=== PATIENT | female | born 1955 | race Hispanic/Latino ===

== ENCOUNTER 2020-03-19 16:45 | Inpatient (IN) | payer OTHER ==
[2020-03-19] MEDS ORDERED: Acetaminophen 500 MG TAB ONE (17:38)
[2020-03-19 17:41] LABS: #Lymphocytes 1.4 thou/uL (1.20-3.40); #Monocytes 0.6 thou/uL (0.11-0.59); %Basophils 0.2 % (0.0-1.0); %Eosinophils 0.3 % (0.0-10.0); %Lymphocytes 10.5 % (21.0-51.0); %Monocytes 4.3 % (0.0-10.0); %Neutrophils 84.8 % (42.0-75.0); Hemoglobin 9.7 g/dL (12.0-16.0); Mean Corpuscular HGB CONC 33.1 g/dL (32.0-36.0); Mean Corpuscular Hemoglobin 31.5 pg (27.0-31.0); Mean Corpuscular Volume 95.1 fL (78.0-98.0); Mean Platelet Volume 8.8 fL (7.4-10.4); Platelet Count 108 thou/uL (130-400); Platelet Morphology Comment Appears Decreased; RBC Distribution Width 13.6 % (11.5-14.5); RBC Morphology Normal; Red Blood Cell (RBC) Count 3.07 mill/uL (4.20-5.40)
[2020-03-19 17:50] LABS: INR-International Normal Ratio 1.2; PTT 33.7 SEC (22.9-36.1); Prothrombin Time 14.9 sec (12.0-14.7)
[2020-03-19 17:52] LABS: ALT (SGPT) 11 U/L (8-55); AST (SGOT) 10 U/L (5-34); Albumin 3.8 g/dL (3.4-4.8); Alkaline Phosphatase 128 U/L (40-110); Anion Gap 19 mmol/L (10-20); BUN (Urea Nitrogen) 61 mg/dL (9.8-20.1); Bilirubin, Total 0.5 mg/dL (0.2-1.2); Calc. Creatinine Clearance 0 mL/min (70-130); Calcium 9.4 mg/dL (7.8-10.44); Carbon Dioxide 23 mmol/L (23-31); Chloride 96 mmol/L (98-107); Estimated GFR-MDRD 7; Globulin 3.9 g/dL (2.4-3.5); Glucose 135 mg/dL (80-115); Potassium 5.4 mmol/L (3.5-5.1); Protein, Total 7.7 g/dL (6.0-8.3); Sodium 133 mmol/L (136-145)
[2020-03-19 18:01] LABS: Bacteria/HPF None Seen HPF (None Seen); Bilirubin Negative (Negative); Blood, Urine Trace (Negative); Clarity Clear (Clear); Glucose, Urine (Dipstick) 300 mg/dL (Negative); Leukocyte Negative Leu/uL (Negative); Nitrite Negative (Negative); Protein, Urine (Dipstick) 600 mg/dL (Neg-Trace); RBC/HPF 0-3 HPF (0-3); Squamous Epithelial None Seen HPF (0-3); Urobilinogen Normal mg/dL (Less than 2); WBC/HPF 0-3 HPF (0-3)
--- NOTE | 2020-03-19 18:19 | RAD ---
CHEST ONE VIEW: 03/19/20 HISTORY: AV fistula bleeding. Fever. COMPARISON: None. FINDINGS: Heart size is markedly enlarged. Mild pulmonary venous congestion. No pneumothorax. No acute osseous abnormality. Fistula stents are noted over the left upper extremity. IMPRESSION: Marked cardiomegaly and mild pulmonary edema. POS: HOME
[2020-03-19] MEDS ORDERED: Cefepime 2 GM VIAL ONE (19:43)
[2020-03-19] MEDS ORDERED: Sodium Chloride 0.9% 100 ML ONE (19:43)
[2020-03-19] MEDS ORDERED: Lidocaine 1% w/Epinephrine 1:100K 20 ML VIAL ONE (19:51)
[2020-03-19] MEDS ORDERED: Vancomycin 1 GM/200 ML BAG ONE (21:04)
--- NOTE | 2020-03-19 23:27 | OP ---
DATE OF PROCEDURE: 03/19/2020 PROCEDURE PERFORMED: Control of bleeding, left upper arm arteriovenous graft. PREOPERATIVE DIAGNOSIS: Bleeding from left upper arm arteriovenous graft. POSTOPERATIVE DIAGNOSIS: Bleeding from left upper arm arteriovenous graft. HISTORY OF PRESENT ILLNESS: Ms. Yeboah is a 64-year-old woman, who came to the emergency room due to spontaneous bleeding from her left upper arm AV graft. She is a somewhat self-contradictory historian, but she reports that she has been having some pain in her arm and swelling and then noticed some bleeding. She went to a free-standing ER, where pressure was held, but the bleeding did not stop, so she was transferred to our facility upon the request of her visiting housekeeper. On taking down the dressing, the patient had brisk arterial bleeding. This was re-wrapped and surgery was consulted. Shortly before my arrival, she had a fever to 104, and she had chills while I was examining her and taking her history. There was no active bleeding from the graft with the pressure dressing on, but on removal, there was some bleeding, although this was not as brisk as before. The skin at the bleeding site appeared healthy and there was no evidence of cellulitis or abscess formation, so the recommendation was made to repair this with a suture. The patient was agreeable to this. DESCRIPTION OF PROCEDURE: After informed consent was obtained, the area was prepped with Betadine, and sterilely draped. Local anesthesia was infused through the skin and subcutaneous tissues at the bleeding site and a figure of eight 4-0 nylon suture was placed with excellent control of bleeding. The wound was dressed with sterile gauze and Coban and the patient is to be admitted to the Medicine Service for antibiotics and further management of her fever. There is concern that her graft could have an infection, which led to the bleeding episode, although there is no evidence of cellulitis or gross infection at the bleeding site. I will follow her as an inpatient and await results of blood cultures and other workup. Job ID: [id number] MTDD
[2020-03-19] MEDS ORDERED: cloNIDine 0.1 MG TAB PO PRN (23:40)
[2020-03-19] MEDS ORDERED: Promethazine HCl 12.5 MG in Sodium Chloride 0.9% 50 ML IVPB PRN (23:40)
[2020-03-19] MEDS ORDERED: Labetalol HCl 100 MG/20 ML VIAL SLOW IVP PRN (23:40)
[2020-03-19] MEDS ORDERED: Ondansetron PF 4 MG/2 ML Vial IVP PRN (23:40)
[2020-03-19 23:43] LABS: Lactic Acid 2.1 mmol/L (0.5-2.2)
[2020-03-19] MEDS ORDERED: hydrOXYzine 25 MG TAB PO PRN (23:50)
[2020-03-20] MEDS ORDERED: HYDROcodone/Acetaminophen 5/325 mg Tablet PO PRN (00:13)
[2020-03-20] MEDS ORDERED: Senokot S 8.6-50 MG TAB PO PRN (00:13)
[2020-03-20] MEDS ORDERED: Bisacodyl 5 MG TAB PO PRN (00:13)
[2020-03-20] MEDS ORDERED: Guaifenesin DM 100-10/5 ML UDCUP PO PRN (00:13)
[2020-03-20] MEDS ORDERED: Bisacodyl 10 MG SUPP PR PRN (00:13)
[2020-03-20] MEDS: Acetaminophen 325 MG TAB PO PRN ×4 (00:51→21:39)
[2020-03-20] MEDS ORDERED: Vancomycin HCl 1.25 GM in Sodium Chloride 0.9% 250 ML 250 ML IVPB SCH (02:00)
[2020-03-20] MEDS ORDERED: Vancomycin HCl 500 MG in Sodium Chloride 0.9% 100 ML IVPB SCH (02:00)
[2020-03-20] MEDS ORDERED: Vancomycin 1 GM in Premix Bag 1 BAG IVPB SCH (02:00)
[2020-03-20] MEDS ORDERED: Vancomycin HCl 750 MG in Sodium Chloride 0.9% 250 ML 250 ML IVPB SCH (02:00)
[2020-03-20] MEDS ORDERED: HOLD VANCOMYCIN FOR LEVEL >20 FS SCH (02:00)
[2020-03-20] MEDS ORDERED: Dextrose 50% Abboject 50 ML SYRINGE SLOW IVP PRN (02:48)
[2020-03-20] MEDS ORDERED: Dextrose 5% in Water 1,000 ML IV PRN (02:48)
[2020-03-20] MEDS ORDERED: HumaLOG 300 UNITS/3 ML VIAL SC PRN (02:48)
--- NOTE | 2020-03-20 02:54 | PDOC.HHP ---
Hospitalist HPI - History of Present Illness Bleeding from L upper extremity AV fistula History of Present Illness: Patient is a 64 year old female with PMH ESRD who presents to the ED for spontaneous bleeding from L arm AV fistula which began this morning around 10am , patient reports completing HD on Wednesday with no issues, was feeling fine and in normal state of health when this happened, she denies chills however in the ED was found to have a very high fever in the 104F range. Patient did not respond to compression of LUE fistula and continued to briskly bleed, Dr Moya of general surgery was consulted and came in and sutured the fistula which halted bleeding, compression dressing placed, also patient nephrologists was consulted by ED. At time of interview, intensive care unit nurse Ipad used, patient denies feeling abnormal at all,is pleasant, fistula in surgical dressing with no weeping, given vancomycin and cefepime in ED and cultures drawn , patient admitted to [facility] for further workup. ED Course: VITAL SIGNS WedMarch 19, 2020 21:19 MARIO Morales, [facility] BP: 130/55 MAP: 76 Pulse: 67 Resp: 20 Pain: utr O2 sat: 100 on (2L Oxygen) Time: 03/19/2020 21:19. Hospitalist ROS - Review of Systems Constitutional: reports: fever, chills. denies: sweats, weakness, malaise, other Eyes: denies: pain, vision change, conjunctivae inflammation, eyelid inflammation, redness, other ENT: denies: ear pain, ear discharge, nose pain, nose discharge, nose congestion , mouth pain, mouth swelling, throat pain, throat swelling, other Respiratory: denies: cough, dry, shortness of breath, hemoptysis, SOB with excertion, pleuritic pain, sputum, wheezing, other Cardiovascular: denies: chest pain, palpitations, orthopnea, paroxysmal noc. dyspnea, edema, light headedness, other Gastrointestinal: denies: nausea, vomiting, abdominal pain, diarrhea, constipation, melena, hematochezia, other Genitourinary: denies: dysuria, frequency, incontinence, hematuria, retention, other Musculoskeletal: denies: neck pain, shoulder pain, arm pain, back pain, hand pain, leg pain, foot pain, other Skin: denies: rash, lesions, gwen, bruising, other Other: Hematologic +bleeding -bruising All other systems reviewed; all pertinent +/- noted in HPI/Subj - Medication Medications: Active Medications Generic Name Dose Route Start Last Admin Trade Name Freq PRN Reason Stop Dose Admin Acetaminophen 650 mg 03/20/20 00:13 03/20/20 00:51 Tylenol PO 650 mg Q4H PRN Administration Headache/Fever/Mild Pain (1-3) Hospitalist History - Past Medical History Other Medical History: T2DM hypothyroidism ESRD HLD HTN - Past Surgical History Other Surgical History: L AV FISTULA, HERNIA REPAIR, APPENDECTOMY, CHOLCYSTECTOMY. - Family History Family History: reports: no pertinent history - Social History Smoking Status: Never smoker Alcohol: reports: None Drugs: reports: none - Exam General Appearance: NAD, awake alert Eye: PERRL, anicteric sclera ENT: normocephalic atraumatic, no oropharyngeal lesions, moist mucosa Neck: supple, symmetric, no JVD, no thyromegaly, no lymphadenopathy, no carotid bruit Heart: RRR, no murmur, no gallops, no rubs, normal peripheral pulses Respiratory: CTAB, no wheezes, no rales, no ronchi, normal chest expansion, no tachypnea, normal percussion Gastrointestinal: soft, non-tender, non-distended, normal bowel sounds, no palpable masses, no hepatomegaly, no splenomegaly, no bruit Extremities: no cyanosis, no clubbing, no edema Extremities - other findings: surgical dressing L arm, palpable pulses distally , no cyanosis, +thrill Skin: normal turgor, no lesions, no rashes Neurological: cranial nerve grossly intact, normal sensation to touch, no weakness, no focal deficits, no new deficit Musculoskeletal: normal tone, normal strength, no muscle wasting Psychiatric: normal affect, normal behavior, A&O x 3 Hospitalist Results - Labs Result Diagrams: 03/19/20 17:23 03/19/20 17:23 Lab results: WBC 13.0 thou/uL (4.8-10.8) H 03/19/20 17:23 Hgb 9.7 g/dL (12.0-16.0) L 03/19/20 17:23 Hct 29.2 % (36.0-47.0) L 03/19/20 17:23 MCV 95.1 fL (78.0-98.0) 03/19/20 17:23 Plt Count 108 thou/uL (130-400) L 03/19/20 17:23 Neutrophils % 84.8 % (42.0-75.0) H 03/19/20 17:23 Sodium 133 mmol/L (136-145) L 03/19/20 17:23 Potassium 5.4 mmol/L (3.5-5.1) H 03/19/20 17:23 Chloride 96 mmol/L (98-107) L 03/19/20 17:23 Carbon Dioxide 23 mmol/L (23-31) 03/19/20 17:23 BUN 61 mg/dL (9.8-20.1) H 03/19/20 17:23 Creatinine 6.07 mg/dL (0.6-1.1) H 03/19/20 17:23 Glucose 135 mg/dL (80-115) H 03/19/20 17:23 Lactic Acid 2.1 mmol/L (0.5-2.2) 03/19/20 23:18 Calcium 9.4 mg/dL (7.8-10.44) 03/19/20 17:23 Total Bilirubin 0.5 mg/dL (0.2-1.2) 03/19/20 17:23 AST 10 U/L (5-34) 03/19/20 17:23 ALT 11 U/L (8-55) 03/19/20 17:23 Alkaline Phosphatase 128 U/L (40-110) H 03/19/20 17:23 Serum Total Protein 7.7 g/dL (6.0-8.3) 03/19/20 17:23 Albumin 3.8 g/dL (3.4-4.8) 03/19/20 17:23 Urine Ketones Negative mg/dL (Negative) 03/19/20 17:48 Urine Blood Trace (Negative) A 03/19/20 17:48 Urine Nitrite Negative (Negative) 03/19/20 17:48 Ur Leukocyte Esterase Negative Isabela/uL (Negative) 03/19/20 17:48 Urine RBC 0-3 HPF (0-3) 03/19/20 17:48 Urine WBC 0-3 HPF (0-3) 03/19/20 17:48 Ur Squamous Epith Cells None Seen HPF (0-3) 03/19/20 17:48 Urine Bacteria None Seen HPF (None Seen) 03/19/20 17:48 Additional comment: VITAL SIGNS WedMarch 19, 2020 16:51 MARIO Chaney Jenifer BP: 196/74 MAP: 114 Pulse: 70 Resp: 24 Pain: UTR O2 sat: 94 on (Room Air) Time: 03/19/2020 16:51. VITAL SIGNS WedMarch 19, 2020 17:25 MARIO Chaney Jenifer Temp: 104.6 (Rectal) Time: 03/19/2020 17:25. VITAL SIGNS WedMarch 19, 2020 18:32 MARIO Morales [place] Brooke BP: 169/87 MAP: 114 Pulse: 90 Resp: 24 Pain: utr O2 sat: 94 on (Room Air) Time: 03/19/2020 18:32. VITAL SIGNS WedMarch 19, 2020 19:22 MARIO Morales [place] Brooke BP: 185/76 MAP: 112 Pulse: 87 Resp: 24 Pain: UTR O2 sat: 93 on (Room Air) Time: 03/19/2020 19:22. VITAL SIGNS WedMarch 19, 2020 20:34 MARIO Morales [place] Brooke BP: 150/64 MAP: 92 Pulse: 72 Resp: 20 Temp: 102.8 (Oral) Pain: utr O2 sat: 92 on (Room Air) Time: 03/19/2020 20:34. VITAL SIGNS WedMarch 19, 2020 20:50 MARIO Morales [place] Brooke O2 sat: 88 on (Room Air) Time: 03/19/2020 20:50. VITAL SIGNS WedMarch 19, 2020 20:59 MARIO Morales [place] Brooke O2 sat: 99 on (2L Oxygen) Time: 03/19/2020 20:59. VITAL SIGNS WedMarch 19, 2020 21:19 MARIO Morales [place] Brooke BP: 130/55 MAP: 76 Pulse: 67 Resp: 20 Pain: utr O2 sat: 100 on (2L Oxygen) Time: 03/19/2020 21:19. Hospitalist H&P A/P - Plan Plan: Patient is a 64 year old female with PMH ESRD who presents to the ED for spontaneous bleeding from L arm AV fistula. # spontaneous fistula bleeding - Dr Moya concerned about fistula infection, appreciate prompt intervention by surgery, patient to be admitted with nephrology consult and surgery to follow, trend CBC and other labs daily and monitor clinically - hold asa/cilostazole for now - coags ordered # sepsis secondary to possible fistula infection - patient empirically started on vancomycin and cefepime which we will continue, asymptomatic and no other complaints than fever and bleeding, nephrology and surgery consulted, monitor closely on flood and follow culture results - pharmacy consult for renal/HD dosing # T2DM - resume home meds + SSI # hyperkalemia - trend, intervene if worsens, consult nephrology for HD eval - kcl in home med list, 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
[2020-03-20] MEDS: Levothyroxine Sodium 25 MCG TAB PO SCH (06:10)
[2020-03-20] MEDS ORDERED: Albuterol 200 PUFF (6.7GM INHALER) INH PRN (07:30)
[2020-03-20] MEDS: Mometasone 100 MCG/PUFF (1 INHALER) INH SCH ×2 (07:35→22:25)
[2020-03-20 08:09] LABS: #Lymphocytes 0.8 thou/uL (1.20-3.40); #Monocytes 0.5 thou/uL (0.11-0.59); #Neutrophils 15.4 thou/uL (1.40-6.50); %Basophils 0.2 % (0.0-1.0); %Eosinophils 0.1 % (0.0-10.0); %Lymphocytes 4.8 % (21.0-51.0); %Monocytes 3.1 % (0.0-10.0); %Neutrophils 91.8 % (42.0-75.0); Hemoglobin 10.1 g/dL (12.0-16.0); Mean Corpuscular HGB CONC 33.5 g/dL (32.0-36.0); Mean Corpuscular Hemoglobin 31.8 pg (27.0-31.0); Mean Platelet Volume 9.6 fL (7.4-10.4); Platelet Count 94 thou/uL (130-400); RBC Distribution Width 14.1 % (11.5-14.5); Red Blood Cell (RBC) Count 3.17 mill/uL (4.20-5.40); White Blood Cell (WBC) Count 16.8 thou/uL (4.8-10.8)
[2020-03-20 08:26] LABS: Anion Gap 22 mmol/L (10-20); BUN (Urea Nitrogen) 73 mg/dL (9.8-20.1); Calc. Creatinine Clearance 10 mL/min (70-130); Carbon Dioxide 21 mmol/L (23-31); Chloride 94 mmol/L (98-107); Estimated GFR-MDRD 6; Glucose 131 mg/dL (80-115); Phosphorus 4.8 mg/dL (2.3-4.7); Potassium 6.2 mmol/L (3.5-5.1); Sodium 131 mmol/L (136-145)
[2020-03-20 08:45] LABS: Free T4 (Free Thyroxine) 1.13 ng/dL (0.70-1.48); Thyroid Stimulating Hormone 1.8011 uIU/mL (0.35-4.94)
[2020-03-20] MEDS ORDERED: Non-Formulary Item 1 EACH (Fluticasone/Umeclidin/Vilanter [Trelegy Ellipta 100-62.5-25] 1 IH SCH (09:00)
[2020-03-20] MEDS: Polyethylene Glycol 3350 17 GM Packet PO SCH ×2 (09:11→10:31)
[2020-03-20] MEDS: Famotidine 20 MG TAB PO SCH (09:11)
[2020-03-20] MEDS: Losartan 25 MG TAB PO SCH ×2 (09:11→16:36)
[2020-03-20] MEDS: Furosemide 40 MG TAB PO SCH ×4 (09:11→21:39)
[2020-03-20] MEDS: Gabapentin 300 MG CAP PO SCH ×2 (09:11→21:39)
[2020-03-20 09:31] LABS: INR-International Normal Ratio 1.3; Prothrombin Time 16.4 sec (12.0-14.7)
--- NOTE | 2020-03-20 10:15 | CON ---
DATE OF CONSULTATION: HISTORY OF PRESENT ILLNESS: Ms. Yeboah is a 64-year-old female, who has history of ESRD and presented to the ER due to bleeding from the left upper extremity/AV graft. She was seen by Surgery - Dr. Moya, who placed suture around the bleeding site, which resolved. However, the patient was noted to be febrile. On exam, the access was noted to be nonerythematous. Due to the unclear etiology of the fever, the patient is being ruled out for a COVID-19 infection. We are now consulted for maintenance hemodialysis. REVIEW OF SYSTEMS: Positive for fever. No chest pain or shortness of breath. No nausea. No vomiting. No diarrhea. No constipation. No productive cough. Denies any fever or chills. No dysuria. No urinary frequency. No abdominal pain. Appetite and energy level are fair. MEDICATIONS: The patient is currently on; 1. [place] 5/325 q.4 p.r.n. 2. Proventil 2 puffs q.6 p.r.n. 3. Cefepime 0.5 g IV daily. 4. Clonidine p.r.n. 5. Famotidine 20 mg daily. 6. Furosemide 40 mg b.i.d. 7. Neurontin 300 mg p.o. b.i.d. 8. Humalog sliding scale. 9. Levothyroxine 25 mcg daily. 10. Losartan 25 mg daily. 11. Toprol-XL 50 mg b.i.d. 12. Vancomycin p.r.n. PAST MEDICAL HISTORY: 1. 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 2. Type 2 diabetes mellitus. PAST SURGICAL HISTORY: Status post AV fistula placed, status post AV graft placement, status post hernia repair, status post appendectomy, and status post cholecystectomy. FAMILY HISTORY: No family history of ESRD. SOCIAL HISTORY: Currently, no smoking or alcohol intake. No IV drug abuse. Status post blood transfusion. The patient is . Lives with her . Several children. Sedentary lifestyle. [facility] the [facility]. PHYSICAL EXAMINATION: VITAL SIGNS: Blood pressure is 104/50, temperature 101, heart rate 68, respiratory rate 20, and O2 saturation 99%. GENERAL: The patient is awake and comfortable, not in overt distress. SKIN: Adequate turgor. HEENT: Pinkish conjunctivae. Anicteric sclerae. NECK: No neck mass. No carotid bruits. No JVD. CHEST: No deformities. LUNGS: Clear breath sounds. HEART: Normal sinus rhythm. No murmur. No gallops. No rubs. ABDOMEN: Globular, soft, and nontender. No masses. EXTREMITIES: No edema. No deformities. LABORATORY DATA: Laboratories of March 20, 2020, white count 16.8 and hemoglobin 10.1. Sodium 131, potassium 6.2, chloride 94, carbon dioxide 21, BUN 73, creatinine 6.59, glucose 131, phosphorus 4.8, calcium 9, TSH 1.8, and free T4 of 1.13. Chest x-ray increased lung markings. ASSESSMENT AND PLAN: 1. End-stage renal disease - stable. We will do hemodialysis today for 3 hours. Fluid removal as tolerated by the patient. We will then resume back her Wednesday, , and Wednesday hemodialysis. Please note, she missed dialysis yesterday. 2. Mild hyperkalemia - hemodialysis today. Discontinue any potassium supplementation for the moment with this patient if she is taking some. 3. Fever. The patient being ruled out for COVID. Blood culture pending. In addition, the patient is empirically on IV antibiotics. Please note that chest x-ray did not show any overt pneumonia. Overall agree with current management. Job ID: [id number]
[2020-03-20] MEDS ORDERED: Morphine 2 MG/ML SYRINGE SLOW IVP SCH (13:00)
[2020-03-20] MEDS ORDERED: Morphine 4 MG/ML VIAL ONE (13:01)
[2020-03-20] MEDS: Albuterol 200 PUFF (6.7GM INHALER) INH SCH ×3 (15:01→22:25)
[2020-03-20 17:14] LABS: SARS-CoV-2 MS2 Positive; SARS-CoV-2 N Gene Negative; SARS-CoV-2 S Gene Negative; SARS-CoV-2 orf1ab Negative
--- NOTE | 2020-03-20 18:29 | PDOC.EVN ---
Event Note - Event Note Event Note: Seen and examined. Responded to a code green, patient having chest pain while on hemodialysis. Patient has a history of chest pain while on hemodialysis. Patient endorses chest pain via the customer complaint service supervisor. Patient was given morphine which alleviated her chest pain. Patient hemodynamically stable at the time of my evaluation. Patient currently undergoing hemodialysis. Patient with sepsis on appropriate antibiotic therapy, coverage for nosocomial infections. She is on isolation precautions for Covid rule out, which came back negative. We will discontinue isolation precautions. Patient upgraded to medical unit with telemetry to monitor more closely with heart monitoring and elevated potassium. If she becomes hemodynamically compromised she may require upgrade to the intensive care or IMC, though at this time Telemetry will be appropriate.
[2020-03-20] MEDS ORDERED: Cefepime 0.5 GM, Admixture Fee 1 EACH in Sodium Chloride 0.9% 100 ML IVPB SCH (21:00)
[2020-03-20] MEDS: Simvastatin 20 MG TAB PO SCH (21:40)
[2020-03-21] MEDS: Albuterol 200 PUFF (6.7GM INHALER) INH SCH ×4 (00:26→18:40)
[2020-03-21 04:43] LABS: #Lymphocytes 0.6 thou/uL (1.20-3.40); #Monocytes 0.3 thou/uL (0.11-0.59); #Neutrophils 6.6 thou/uL (1.40-6.50); %Basophils 0.2 % (0.0-1.0); %Eosinophils 0.2 % (0.0-10.0); %Lymphocytes 7.9 % (21.0-51.0); %Monocytes 4.1 % (0.0-10.0); %Neutrophils 87.7 % (42.0-75.0); Hemoglobin 8.2 g/dL (12.0-16.0); Mean Corpuscular HGB CONC 33.1 g/dL (32.0-36.0); Mean Corpuscular Hemoglobin 31.8 pg (27.0-31.0); Platelet Count 81 thou/uL (130-400); RBC Distribution Width 13.6 % (11.5-14.5); Red Blood Cell (RBC) Count 2.57 mill/uL (4.20-5.40); White Blood Cell (WBC) Count 7.6 thou/uL (4.8-10.8)
[2020-03-21 04:59] LABS: Anion Gap 18 mmol/L (10-20); BUN (Urea Nitrogen) 45 mg/dL (9.8-20.1); Calc. Creatinine Clearance 14 mL/min (70-130); Calcium 8.8 mg/dL (7.8-10.44); Carbon Dioxide 25 mmol/L (23-31); Chloride 97 mmol/L (98-107); Estimated GFR-MDRD 9; Glucose 121 mg/dL (80-115); Phosphorus 4.9 mg/dL (2.3-4.7); Potassium 4.6 mmol/L (3.5-5.1); Sodium 135 mmol/L (136-145)
[2020-03-21] MEDS: Levothyroxine Sodium 25 MCG TAB PO SCH (05:24)
--- NOTE | 2020-03-21 06:10 | CON ---
DATE OF CONSULTATION: REASON FOR CONSULTATION: Bleeding AV graft. HISTORY OF PRESENT ILLNESS: Ms. Yeboah is a 64-year-old woman with end-stage renal failure. I placed a left upper arm AV graft for her several years ago. She has been using this without problems up until this week. She apparently missed her dialysis appointment on Wednesday and came into the emergency room because of spontaneous bleeding from her graft. When I saw the patient in the emergency room, she was somewhat confused and making some contradictory statements, but it sounds like she has been having some pain in the arm off and on as well as some swelling, but had not noticed any changes to the skin prior to the graft starting to bleed. The bleeding was controlled by placing a suture at the area of bleeding. The skin overlying it looked relatively healthy. There was not any erythema or fluctuance or overt sign of infection. I could not see any exposed graft but she had a small wound which was only a few millimeters in size. However, the patient has been having fevers since her arrival in the emergency room and chills. She denied having any fevers or chills prior to arrival in the emergency room. Blood cultures were sent and are starting to come back as gram-positive cocci in clusters identified as MSSA on blood cultures. PAST MEDICAL HISTORY: 1. End-stage renal failure, on dialysis for several years. 2. Hypothyroidism. 3. Type 2 diabetes. 4. Hyperlipidemia. 5. Hypertension. PAST SURGICAL HISTORY: 1. Appendectomy. 2. Cholecystectomy. 3. Left upper arm AV graft. FAMILY HISTORY: Noncontributory. SOCIAL HISTORY: The patient does not smoke, drink, or use illicit drugs. REVIEW OF SYSTEMS: Ten system review of systems is negative except per HPI. The patient specifically denies any respiratory symptoms. PHYSICAL EXAMINATION: VITAL SIGNS: T-max was 104 in the emergency room, heart rate 95, respirations 20, 94% saturated on 2 L nasal cannula, blood pressure 120/54. GENERAL: An ill-appearing elderly woman, in no acute distress, who was shivering. No jaundice or icterus. Not flushed or toxic or diaphoretic. HEENT: Unremarkable. NECK: Supple without lymphadenopathy. HEART: Regular in rate and rhythm with soft systolic murmur. LUNGS: Clear. ABDOMEN: Soft. She did report some upper abdominal tenderness to palpation, but she did not exhibit any guarding. She has healed surgical incisions without any palpable masses or hernias EXTREMITIES: Warm and well perfused. The left arm was swollen with pressure dressing placed at AV graft site. As previously stated, small skin opening with no visible exposed graft. No cellulitis or fluctuance to suggest an abscess. NEUROLOGIC: No focal deficits. PSYCHIATRIC: Alert and cooperative, but somewhat self contradictory, demonstrating some confusion. LABORATORY DATA: White count elevated with a left shift and slightly low platelets. Coags were unremarkable. INR okay. Potassium was elevated at 6.2. BUN and creatinine 73 and 6.59. COVID test is still pending. Urine showed protein, trace blood, but no leukocytes, and urine culture shows no growth at 24 hours. IMAGING STUDIES: Chest x-ray did not show any infiltrates, although she was fluid overloaded. ASSESSMENT: Bleeding AV graft with fever and positive blood cultures. Even though there is no overt sign of infection at the site of the bleeding I think we must assume it is infected. I have placed the patient on the schedule for tomorrow for a revision of her graft. Plan is to bypass the exposed area and then open and debride that area, removing the graft and treating with antibiotics. I would also recommend that the patient have an echocardiogram and that Infectious Disease be consulted. If she does not have a usable length of graft after her procedure, she may need a tunneled Hemodialysis catheter; however, hopefully this will not be necessary. Even with bypass and debridement, it is possible that the graft may be colonized and we may ultimately need to tie this off. However, I would like to try to preserve the graft as she has very limited venous access. We will get permission for the procedure from the patient's family as she is confused. Job ID: [id number] [facility]
[2020-03-21] MEDS: Mometasone 100 MCG/PUFF (1 INHALER) INH SCH ×2 (06:43→18:39)
[2020-03-21] MEDS: Famotidine 20 MG TAB PO SCH (08:04)
[2020-03-21] MEDS: Furosemide 40 MG TAB PO SCH ×2 (08:04→21:03)
[2020-03-21] MEDS: Gabapentin 300 MG CAP PO SCH ×2 (08:04→21:02)
[2020-03-21] MEDS: Losartan 25 MG TAB PO SCH (08:04)
[2020-03-21] MEDS: Polyethylene Glycol 3350 17 GM Packet PO SCH (08:05)
--- NOTE | 2020-03-21 08:38 | PRG ---
DATE OF SERVICE: 03/21/2020 SUBJECTIVE: Ms. Yeboah is a 64-year-old female with ESRD, was admitted due to fever. She was also bleeding from her AV graft. She will be ruled out for COVID-19. The patient was also noted to be bacteremic, Staph aureus. The feeling is that the AV graft might be infected. Dr. Moya, her surgeon will explore her AV graft. She did undergo dialysis yesterday. My plan is simply to hold off dialysis today and resume it back tomorrow. OBJECTIVE: VITAL SIGNS: Blood pressure 108/53, heart rate 75, respiratory rate 20, temperature 99.1, O2 saturation 98%, and T-max is 100.3. GENERAL: The patient is awake, somewhat lethargic, not in overt distress. SKIN: Adequate turgor. HEENT: Slightly pale conjunctivae. Anicteric sclerae. No neck mass. No carotid bruits. No JVD. CHEST: No deformities. LUNGS: Clear breath sounds. No wheezing. No crackles. HEART: Normal sinus rhythm. No murmurs, gallops, or rubs. ABDOMEN: Globular, soft, and nontender. No masses. EXTREMITIES: No edema. No deformities. MEDICATIONS: March 21, 2020, was reviewed. LABORATORY DATA: March 21, 2020, showed a blood culture positive for Staph aureus x2. White count 7.6, hemoglobin 8.2, sodium 135, potassium 4.6, chloride 97, carbon dioxide 25, BUN 45, creatinine 4.85, glucose is 121, calcium 8.8, and phosphorus is 4.9. ASSESSMENT AND PLAN: 1. Arteriovenous graft infection-empiric IV antibiotics. Currently, on IV vancomycin. Surgery to explore the AV graft today. 2. End-stage renal disease, underwent hemodialysis yesterday and tolerated said treatment. We will resume dialysis tomorrow, Wednesday, Wednesday, and Wednesday. 3. Hyperkalemia, resolved with dialysis. Continue supportive care. 4. Anemia. We will recheck CBC in a.m. Job ID: [id number]
[2020-03-21 11:15] LABS: Vancomycin, Random 13.1 ug/mL (See Comment)
--- NOTE | 2020-03-21 11:17 | PDOC.GSPN ---
Surgery Progress Note: Subj - Subjective Narrative: Patient is still confused, only intermittently responding appropriately using a slab inspector. Clinically she is doing somewhat better, with no high fevers and normalized white count. She did seem to grasp the fact that surgery is planned for today. Her daughter has given consent for this and I had a long discussion with the daughter by telephone regarding the patient's problem and recommended treatment. I explained that she has staph aureus in her bloodstream which is usually a skin organism and that the skin erosion over the graft is the most likely source of this. I explained that there are 2 ways to attempt to treat this problem. One is with suppressive antibiotics, but it can be difficult to clear an infection in an artificial material with antibiotics alone. The more standard treatment is to excise the infected area of the graft and to bypass it through a clean field with a new graft. There is still a chance that the graft could be colonized away from the site of the skin erosion, and that the graft may ultimately need to be tied off, but given the patient's limited veins I would like to try to salvage the graft. I explained that if there is not an adequate length of graft to access above and below the operative field, she will likely require a tunneled dialysis catheter temporarily while the graft heals in. I discussed the inherent risks of surgery. These include but are not limited to bleeding, infection, risks of anesthesia, hemothorax, pneumothorax, need for other procedures, and failure of the graft. She understands and accepts these risks and wishes to proceed. The patient is on schedule for this afternoon. Surgery Progress Note: Obj - Vital signs Vital signs: Vital Signs - Most Recent Temp Pulse Resp BP Pulse Ox 99.1 F 75 20 108/53 L 98 03/21/20 04:09 03/21/20 04:09 03/21/20 04:09 03/21/20 04:09 03/21/20 04:09 Surgery Progress Note: Results - Labs Result Diagrams: 03/21/20 03:50 03/21/20 03:50 Lab results: Laboratory Results - last 24 hr 03/21/20 03/21/20 03/21/20 03:50 03:50 06:02 WBC 7.6 RBC 2.57 L Hgb 8.2 L Hct 24.7 L MCV 96.0 MCH 31.8 H MCHC 33.1 RDW 13.6 Plt Count 81 L MPV 10.0 Neutrophils % 87.7 H Neutrophils % (Manual) Not Reportable Lymphocytes % 7.9 L Monocytes % 4.1 Eosinophils % 0.2 Basophils % 0.2 Neutrophils # 6.6 H Lymphocytes # 0.6 L Monocytes # 0.3 Eosinophils # 0.0 Basophils # 0.0 Sodium 135 L Potassium 4.6 Chloride 97 L Carbon Dioxide 25 Anion Gap 18 BUN 45 H Creatinine 4.85 H Estimated GFR (MDRD) 9 Glucose 121 H POC Glucose 142 H Calcium 8.8 Phosphorus 4.9 H Magnesium 2.0
[2020-03-21] MEDS ORDERED: Protamine Sulfate 50 MG/5 ML VIAL ONE (12:22)
[2020-03-21] MEDS ORDERED: Lidocaine 1% w/Epinephrine 1:100K 20 ML VIAL ONE (12:22)
[2020-03-21] MEDS ORDERED: Bupivacaine 0.25% HCL 30 ML VIAL ONE (12:22)
[2020-03-21] MEDS ORDERED: Heparin 5,000 UNITS/ML VIAL ONE (12:22)
[2020-03-21] MEDS ORDERED: Fentanyl 100 MCG/2 ML VIAL ONE ×2 (12:26→16:21)
[2020-03-21] MEDS ORDERED: Atracurium 100 MG/10 ML VIAL ONE (12:27)
[2020-03-21] MEDS ORDERED: EPHEDRINE 25 MG/5 ML SYRINGE ONE (13:03)
[2020-03-21] MEDS ORDERED: PROPOFOL 200 MG/20 ML VIAL ONE ×2 (13:03)
[2020-03-21] MEDS ORDERED: Lidocaine 1% PF 5 ML VIAL ONE (13:03)
[2020-03-21] MEDS ORDERED: Vancomycin HCl 500 MG VIAL ONE (13:12)
[2020-03-21] MEDS ORDERED: hydrALAZINE 20 MG/ML VIAL ONE (16:29)
[2020-03-21] MEDS ORDERED: Promethazine HCl 25 MG/ML VIAL IM/IV PRN (16:52)
[2020-03-21] MEDS ORDERED: Non-Formulary Medication 1 EACH PO PRN (16:52)
[2020-03-21] MEDS ORDERED: Ondansetron HCl/PF 4 MG/2 ML Vial IVP PRN (16:52)
[2020-03-21] MEDS: Simvastatin 20 MG TAB PO SCH (21:03)
--- NOTE | 2020-03-21 22:04 | PDOC.HOSPP ---
- Subjective Encounter Date: 03/21/20 Encounter Time: 09:00 Subjective: no overnight events. This morning, appears in no distress and has no complaints. - Objective Vital Signs & Weight: Vital Signs (12 hours) Temp Pulse Resp BP Pulse Ox 03/21/20 17:32 97.8 F 69 16 122/56 L 94 L Weight Weight 160 lb I&O: 03/20/20 03/21/20 03/22/20 06:59 06:59 06:59 Intake Total 560 Output Total 10 Balance 550 Result Diagrams: 03/21/20 03:50 03/21/20 03:50 Additional Labs: Accuchecks 03/21/20 03/21/20 03/20/20 20:41 06:02 20:30 POC Glucose 192 H 142 H 128 H Hospitalist ROS - Review of Systems Constitutional: denies: fever, chills, sweats, weakness, malaise, other Respiratory: denies: cough, dry, shortness of breath, hemoptysis, SOB with excertion, pleuritic pain, sputum, wheezing, other Cardiovascular: denies: chest pain, palpitations, orthopnea, paroxysmal noc. dyspnea, edema, light headedness, other Gastrointestinal: denies: nausea, vomiting, abdominal pain, diarrhea, constipation, melena, hematochezia, other Genitourinary: denies: dysuria, frequency, incontinence, hematuria, retention, other - Medication Medications: Active Medications Generic Name Dose Route Start Last Admin Trade Name Freq PRN Reason Stop Dose Admin Acetaminophen 650 mg 03/20/20 00:13 03/20/20 21:39 Tylenol PO 650 mg Q4H PRN Administration Headache/Fever/Mild Pain (1-3) Albuterol Sulfate 2 puff 03/20/20 13:03/21/20 18:40 Proventil Hfa INH 2 puff [id number] ROLANDO Administration Famotidine 20 mg 03/20/20 09:00 03/21/20 08:04 Pepcid PO 20 mg DAILY ROLANDO Administration Furosemide 40 mg 03/20/20 09:00 03/21/20 21:03 Lasix PO 40 mg BID ROLANDO Administration Gabapentin 300 mg 03/20/20 09:00 03/21/20 21:02 Neurontin PO 300 mg BID ROLANDO Administration Levothyroxine Sodium 25 mcg 03/20/20 06:00 03/21/20 05:24 Synthroid PO 25 mcg 0600 ROLANDO Administration Losartan Potassium 25 mg 03/20/20 09:00 03/21/20 08:04 Cozaar PO 25 mg DAILY ROLANDO Administration Metoprolol Succinate 50 mg 03/20/20 09:00 03/21/20 21:03 Toprol Xl PO 50 mg BID ROLANDO Administration Mometasone Furoate 100 mcg 03/20/20 06:30 03/21/20 18:39 Asmanex Hfa 100 Mcg INH 100 mcg BID-RT ROLANDO Administration Ondansetron HCl 4 mg 03/19/20 23:40 03/21/20 21:03 Zofran IVP 4 mg Q6H PRN Administration Nausea/Vomiting, use 1st Polyethylene Glycol 17 gm 03/20/20 09:00 03/21/20 08:05 Miralax PO 17 gm DAILY ROLANDO Administration Simvastatin 20 mg 03/20/20 21:00 03/21/20 21:03 Zocor PO 20 mg HS ROLANDO Administration - Exam General Appearance: NAD, awake alert Heart: RRR, no murmur, no gallops, no rubs, normal peripheral pulses Respiratory: CTAB, no wheezes, no rales, no ronchi, normal chest expansion, no tachypnea, normal percussion Gastrointestinal: soft, non-tender, non-distended, normal bowel sounds, no palpable masses, no hepatomegaly, no splenomegaly, no bruit Psychiatric: normal affect, normal behavior Hosp A/P - Plan # spontaneous fistula bleeding - no additional bleeding after sutured # sepsis due to MSSA bacteremia. likely source fistula-gram +ve, pending wound culture # T2DM - well controlled # hypothyroidism - resume home meds # ESRD - nephrology onboard for HD # HLD - resume home meds # HTN - resume home meds, PRN medications available
[2020-03-22] MEDS: Albuterol 200 PUFF (6.7GM INHALER) INH SCH ×4 (00:25→19:12)
[2020-03-22 04:26] LABS: #Monocytes 0.6 thou/uL (0.11-0.59); #Neutrophils 5.8 thou/uL (1.40-6.50); %Eosinophils 0.3 % (0.0-10.0); %Monocytes 7.3 % (0.0-10.0); %Neutrophils 78.4 % (42.0-75.0); Hemoglobin 8.2 g/dL (12.0-16.0); Mean Corpuscular HGB CONC 31.6 g/dL (32.0-36.0); Mean Corpuscular Hemoglobin 31.1 pg (27.0-31.0); Mean Corpuscular Volume 98.3 fL (78.0-98.0); Platelet Count 81 thou/uL (130-400); Red Blood Cell (RBC) Count 2.65 mill/uL (4.20-5.40); White Blood Cell (WBC) Count 7.5 thou/uL (4.8-10.8)
[2020-03-22 04:53] LABS: Anion Gap 25 mmol/L (10-20); BUN (Urea Nitrogen) 66 mg/dL (9.8-20.1); Calc. Creatinine Clearance 10 mL/min (70-130); Carbon Dioxide 17 mmol/L (23-31); Chloride 95 mmol/L (98-107); Estimated GFR-MDRD 7; Glucose 126 mg/dL (80-115); Magnesium 2.2 mg/dL (1.6-2.6); Phosphorus 6.8 mg/dL (2.3-4.7); Potassium 5.6 mmol/L (3.5-5.1); Sodium 131 mmol/L (136-145)
[2020-03-22 05:11] LABS: Actual Bicarbonate (HCO3a) 16.5 mEq/L (22-28); Base Excess (BEa) -8.8 mEq/L (-2.0 to +3.0); CO2 Tension 33.1 mmHg (35.0-45.0); Calcium, Ionized 1.16 mmol/L (1.12-1.30); Hemoglobin (Hb) 8.8 g/dL (12.0-16.0); Potassium - ABG Lab 4.66 mmol/L (3.70-5.30); pH, Arterial 7.32 (7.35-7.45)
[2020-03-22 05:12] LABS: ALV-art Gradient 506.625 (0-20); Puncture Site RBRACHIAL
--- NOTE | 2020-03-22 05:16 | PDOC.EVN ---
Event Note - Event Note Event Note: called to room for laura warren this AM, patient with pauses on telemetry that progressed to torsades, pulse lost, 2 mins CPR performed with ROSC, recieved 1 dose epi and 5g magnesium, patient moaning but conversive afterwards, protecting airway on NRB patient to be transferred to CCU, electrolytes repeating, willl call nephrology to inform of electrolyte issues, there was a fistula infection with mssa, new cultures sent, will start bicarb and Mg drips as well as trend q4h mag and BMP, and will also give calcium gluconate, monitor magnesium closely in CCU
[2020-03-22 05:20] LABS: #Lymphocytes 2.8 thou/uL (1.20-3.40); #Monocytes 0.8 thou/uL (0.11-0.59); #Neutrophils 6.1 thou/uL (1.40-6.50); %Basophils 0.4 % (0.0-1.0); %Eosinophils 0.1 % (0.0-10.0); %Lymphocytes 28.7 % (21.0-51.0); %Monocytes 7.7 % (0.0-10.0); %Neutrophils 63.1 % (42.0-75.0); Hemoglobin 8.5 g/dL (12.0-16.0); Mean Corpuscular HGB CONC 31.4 g/dL (32.0-36.0); Mean Corpuscular Hemoglobin 30.9 pg (27.0-31.0); Mean Corpuscular Volume 98.4 fL (78.0-98.0); Mean Platelet Volume 11.2 fL (7.4-10.4); Platelet Count 77 thou/uL (130-400); Red Blood Cell (RBC) Count 2.75 mill/uL (4.20-5.40); White Blood Cell (WBC) Count 9.7 thou/uL (4.8-10.8)
[2020-03-22 05:21] LABS: INR-International Normal Ratio 1.5; Prothrombin Time 18.4 sec (12.0-14.7)
[2020-03-22] MEDS ORDERED: Magnesium Sulfate 20 gm/500 ml 20 GM/500 ML BAG IVPB SCH (05:30)
[2020-03-22] MEDS ORDERED: Sodium Bicarbonate 150 MEQ in Dextrose 5% in Water 1,000 ML IV SCH (05:30)
[2020-03-22] MEDS ORDERED: Calcium Gluconate 9.2 MEQ in Sodium Chloride 0.9% 100 ML IVPB SCH (05:30)
[2020-03-22 05:37] LABS: ALT (SGPT) 48 U/L (8-55); AST (SGOT) 84 U/L (5-34); Albumin 3.3 g/dL (3.4-4.8); Alkaline Phosphatase 172 U/L (40-110); Anion Gap 26 mmol/L (10-20); BUN (Urea Nitrogen) 57 mg/dL (9.8-20.1); Bilirubin, Direct 0.4 mg/dL (0.1-0.3); Bilirubin, Total 0.6 mg/dL (0.2-1.2); Calc. Creatinine Clearance 10 mL/min (70-130); Calcium 9.5 mg/dL (7.8-10.44); Carbon Dioxide 14 mmol/L (23-31); Chloride 93 mmol/L (98-107); Estimated GFR-MDRD 7; Glucose 195 mg/dL (80-115); Lactic Acid 6.7 mmol/L (0.5-2.2); Magnesium 7.4 mg/dL (1.6-2.6); Potassium 4.6 mmol/L (3.5-5.1); Sodium 128 mmol/L (136-145)
[2020-03-22] MEDS ORDERED: Sodium Chloride 0.9% 500 ML IVPB SCH (06:30)
[2020-03-22] MEDS: Levothyroxine Sodium 25 MCG TAB PO SCH (06:37)
[2020-03-22] MEDS: HumaLOG 300 UNITS/3 ML VIAL SC PRN ×2 (06:39→16:20)
[2020-03-22] MEDS: Mometasone 100 MCG/PUFF (1 INHALER) INH SCH ×2 (07:41→19:12)
[2020-03-22] MEDS: Sodium Chloride 0.9% 1,000 ML IV SCH (08:17)
[2020-03-22 09:05] LABS: Lactic Acid 2.9 mmol/L (0.5-2.2)
[2020-03-22 09:13] LABS: Anion Gap 23 mmol/L (10-20); Anion Gap 24 mmol/L (10-20); BUN (Urea Nitrogen) 58 mg/dL (9.8-20.1); BUN (Urea Nitrogen) 67 mg/dL (9.8-20.1); Calc. Creatinine Clearance 10 mL/min (70-130); Calcium 9.3 mg/dL (7.8-10.44); Calcium 9.5 mg/dL (7.8-10.44); Carbon Dioxide 18 mmol/L (23-31); Chloride 96 mmol/L (98-107); Chloride 97 mmol/L (98-107); Estimated GFR-MDRD 7; Glucose 136 mg/dL (80-115); Glucose 141 mg/dL (80-115); Magnesium 4.1 mg/dL (1.6-2.6); Potassium 5.4 mmol/L (3.5-5.1); Potassium 5.5 mmol/L (3.5-5.1); Sodium 132 mmol/L (136-145); Sodium 133 mmol/L (136-145)
[2020-03-22] MEDS: Famotidine 20 MG TAB PO SCH (09:27)
[2020-03-22] MEDS: Furosemide 40 MG TAB PO SCH ×2 (09:28→20:53)
[2020-03-22] MEDS: Losartan 25 MG TAB PO SCH (09:28)
[2020-03-22] MEDS: Gabapentin 300 MG CAP PO SCH ×2 (09:28→20:53)
[2020-03-22] MEDS: Polyethylene Glycol 3350 17 GM Packet PO SCH (09:28)
[2020-03-22 09:33] LABS: Vancomycin, Random 11.5 ug/mL (See Comment)
--- NOTE | 2020-03-22 09:39 | PRG ---
DATE OF SERVICE: 03/22/2020 SUBJECTIVE: Ms. Yeboah is a 64-year-old white female with ESRD, was admitted for fever. She was found to have an infected AV graft. Empiric IV antibiotic has been done. Surgical intervention has been done by Dr. Moya. Early this morning, the patient was said to have developed torsade. She is being evaluated by Cardiology. The feeling is that she may need either a pacemaker/AICD. We are following her up for her maintenance hemodialysis. I have scheduled her for another dialysis. She is mentating much better today. OBJECTIVE: VITAL SIGNS: Blood pressure is 134/82, heart rate 51, respiratory rate 17, O2 saturation 100%. GENERAL: The patient is awake, comfortable, not in distress. SKIN: Adequate turgor. HEENT: Slightly pale conjunctivae. Anicteric sclerae. No neck mass. No carotid bruits. No JVD. CHEST: No deformities. LUNGS: Clear breath sounds. HEART: Normal sinus rhythm. No murmur. No gallops. No rubs. ABDOMEN: Globular, soft, nontender. No masses. EXTREMITIES: No edema. No deformities. MEDICATIONS: Medications of March 22, 2020, reviewed. LABORATORY DATA: Laboratories of March 22, 2020; white count 9.7, hemoglobin 8.5. Sodium 132, potassium 5.5, chloride 97, carbon dioxide 18, BUN 58, creatinine 6.1, glucose 136, calcium 9.5, magnesium is 4.1. ASSESSMENT AND PLAN: 1. Status post torsade/cardiac arrhythmia, Cardiology is evaluating this patient. Consideration for pacemaker is being made by Cardiology. 2. End-stage renal disease, stable. We will continue current hemodialysis regimen. She is noted to be mildly hyperkalemic. I have scheduled her for dialysis today. 3. Infected AV graft, currently resected by Surgery. The patient is on IV vancomycin. 4. Agree with current management. Job ID: [id number]
[2020-03-22] MEDS ORDERED: EPINEPHrine 1 MG/10 ML Abboject SYRINGE ONE (11:06)
[2020-03-22] MEDS ORDERED: Magnesium 5 GM/10 ML Abboject SYRINGE ONE (11:06)
--- NOTE | 2020-03-22 11:14 | PDOC.GSPN ---
Surgery Progress Note: Subj - Subjective Narrative: Patient has been transferred to the ICU status post Torsades arrest and resuscitation. Patient is on dialysis and tolerating this. Her graft is functioning well. Her VAC dressing is in place with minimal drainage. I will see this with the wound care team on Wednesday. No new recommendations. Surgery Progress Note: Obj - Vital signs Vital signs: Vital Signs - Most Recent Temp Pulse Resp BP Pulse Ox 98.8 F 57 L 18 137/63 99 03/22/20 08:00 03/22/20 03:15 03/22/20 03:15 03/22/20 03:15 03/22/20 08:00 Surgery Progress Note: Results - Labs Result Diagrams: 03/22/20 05:07 03/22/20 08:45 Lab results: Laboratory Results - last 24 hr 03/22/20 03/22/20 03/22/20 03:32 03:32 05:03 WBC 7.5 RBC 2.65 L Hgb 8.2 L Hct 26.0 L MCV 98.3 H MCH 31.1 H MCHC 31.6 L RDW 14.0 Plt Count 81 L MPV 11.0 H Neutrophils % 78.4 H Neutrophils % (Manual) Lymphocytes % 14.0 L Monocytes % 7.3 Eosinophils % 0.3 Basophils % 0.0 Neutrophils # 5.8 Lymphocytes # 1.0 L Monocytes # 0.6 H Eosinophils # 0.0 Basophils # 0.0 PT INR Specimen Type ARTERIAL Puncture Site RBRACHIAL Bicarbonate Actual 16.5 L ABG pH 7.32 L ABG pCO2 33.1 L ABG pO2 165.0 H ABG O2 Sat Calc/Lissette 99.1 H ABG O2 Content 12.5 L ABG Base Excess -8.8 L ABG Hematocrit 26.0 L ABG Hemoglobin 8.8 L ABG Oxyhemoglobin 97.8 ABG Carboxyhemoglobin 1.0 ABG Methemoglobin 0.30 ABG Deoxyhemoglobin 0.9 A-a O2 Gradient 506.625 H Ionized Calcium 1.16 Mode of Support NRB Inspired O2 100 Sodium 131 L 130 L Potassium 5.6 H 4.66 Chloride 95 L 94 L Carbon Dioxide 17 L Anion Gap 25 H BUN 66 H Creatinine 5.97 H Estimated GFR (MDRD) 7 Glucose 126 H Lactic Acid Calcium 9.0 Phosphorus 6.8 H Magnesium 2.2 Total Bilirubin Direct Bilirubin AST ALT Alkaline Phosphatase Serum Total Protein Albumin Random Vancomycin 03/22/20 03/22/20 03/22/20 05:07 05:07 05:07 WBC 9.7 RBC 2.75 L Hgb 8.5 L Hct 27.0 L MCV 98.4 H MCH 30.9 MCHC 31.4 L RDW 14.0 Plt Count 77 L MPV 11.2 H Neutrophils % 63.1 Neutrophils % (Manual) Not Reportable Lymphocytes % 28.7 Monocytes % 7.7 Eosinophils % 0.1 Basophils % 0.4 Neutrophils # 6.1 Lymphocytes # 2.8 Monocytes # 0.8 H Eosinophils # 0.0 Basophils # 0.0 PT INR Specimen Type Puncture Site Bicarbonate Actual ABG pH ABG pCO2 ABG pO2 ABG O2 Sat Calc/Lissette ABG O2 Content ABG Base Excess ABG Hematocrit ABG Hemoglobin ABG Oxyhemoglobin ABG Carboxyhemoglobin ABG Methemoglobin ABG Deoxyhemoglobin A-a O2 Gradient Ionized Calcium Mode of Support Inspired O2 Sodium 128 L Potassium 4.6 Chloride 93 L Carbon Dioxide 14 L Anion Gap 26 H BUN 57 H Creatinine 6.03 H Estimated GFR (MDRD) 7 Glucose 195 H Lactic Acid 6.7 H* Calcium 9.5 Phosphorus Magnesium 7.4 H Total Bilirubin 0.6 Direct Bilirubin 0.4 H AST 84 H ALT 48 Alkaline Phosphatase 172 H Serum Total Protein 7.0 Albumin 3.3 L Random Vancomycin 03/22/20 03/22/20 03/22/20 05:07 08:45 08:45 WBC RBC Hgb Hct MCV MCH MCHC RDW Plt Count MPV Neutrophils % Neutrophils % (Manual) Lymphocytes % Monocytes % Eosinophils % Basophils % Neutrophils # Lymphocytes # Monocytes # Eosinophils # Basophils # PT 18.4 H INR 1.5 Specimen Type Puncture Site Bicarbonate Actual ABG pH ABG pCO2 ABG pO2 ABG O2 Sat Calc/Lissette ABG O2 Content ABG Base Excess ABG Hematocrit ABG Hemoglobin ABG Oxyhemoglobin ABG Carboxyhemoglobin ABG Methemoglobin ABG Deoxyhemoglobin A-a O2 Gradient Ionized Calcium Mode of Support Inspired O2 Sodium 133 L Potassium 5.4 H Chloride 96 L Carbon Dioxide 18 L Anion Gap 24 H BUN 67 H Creatinine 6.04 H Estimated GFR (MDRD) 7 Glucose 141 H Lactic Acid Calcium 9.3 Phosphorus Magnesium 4.1 H Total Bilirubin Direct Bilirubin AST ALT Alkaline Phosphatase Serum Total Protein Albumin Random Vancomycin 11.5 03/22/20 03/22/20 08:45 08:45 WBC RBC Hgb Hct MCV MCH MCHC RDW Plt Count MPV Neutrophils % Neutrophils % (Manual) Lymphocytes % Monocytes % Eosinophils % Basophils % Neutrophils # Lymphocytes # Monocytes # Eosinophils # Basophils # PT INR Specimen Type Puncture Site Bicarbonate Actual ABG pH ABG pCO2 ABG pO2 ABG O2 Sat Calc/Lissette ABG O2 Content ABG Base Excess ABG Hematocrit ABG Hemoglobin ABG Oxyhemoglobin ABG Carboxyhemoglobin ABG Methemoglobin ABG Deoxyhemoglobin A-a O2 Gradient Ionized Calcium Mode of Support Inspired O2 Sodium 132 L Potassium 5.5 H Chloride 97 L Carbon Dioxide 18 L Anion Gap 23 H BUN 58 H Creatinine 6.10 H Estimated GFR (MDRD) 7 Glucose 136 H Lactic Acid 2.9 H Calcium 9.5 Phosphorus Magnesium 4.1 H Total Bilirubin Direct Bilirubin AST ALT Alkaline Phosphatase Serum Total Protein Albumin Random Vancomycin
[2020-03-22] MEDS: Morphine 2 MG/ML SYRINGE SLOW IVP PRN ×2 (11:54→15:48)
--- NOTE | 2020-03-22 12:13 | PDOC.OP ---
Operative Note - Operative Note Operative Note: DATE OF PROCEDURE: 03/21/2020 PROCEDURE: Left upper arm AV graft revision, with bypass and resection of infected segment. SURGEON: Erica Moya M.D. PREOPERATIVE DIAGNOSIS: End-stage renal failure with bleeding from AV graft and bacteremia. POSTOPERATIVE DIAGNOSIS: End-stage renal failure with bleeding from AV graft and bacteremia. HISTORY: Patient is a 64-year-old woman with a left upper arm AV graft placed several years ago. She presented to the emergency room with spontaneous bleeding from the graft which was controlled with suture ligation of the skin. However, she spiked a high fever and has had several blood cultures positive for staph aureus. She is presumed to have an infected graft and resection and bypass of the infected segment was recommended. DESCRIPTION OF PROCEDURE: After informed consent was obtained and appropriate preoperative antibiotics administered, the patient was taken to the operating room and placed in supine position and general anesthesia was administered. The arm was prepped and draped in a standard sterile fashion and the area of the previous bleeding was excluded from the field with a Tegaderm. Local anesthesia was infused to the skin and subcutaneous tissues to the graft proximal and distal to the infected segment and the graft was dissected free circumferentially at both locations. A 12 mm tunneler was obtained and brought up from the proximal to the distal incision after infusion of local anesthesia to the tissues. The 12 mm tip was removed and a 6 mm tip placed and a 7 mm straight graft was secured to this. The graft was drawn down through the subcutaneous tunnel being careful not to twist the graft. Heparin was then administered systemically and allowed to circulate for 3 minutes. The proximal graft was clamped and divided obliquely to create a wide anastomosis and the distal portion flushed with heparinized saline and clamped at the other incision. An end-to-end anastomosis was created between the proximal AV graft and the tunneled segment with a running 6-0 Prolene suture with excellent technical result. The same process was then carried out at the distal portion of the graft, which was incidentally found to have a well incorporated stent present within that segment of the graft. Prior to completing the anastomosis, the inflow was released, flushing the anastomosis. The anastomosis was then completed, all clamps were removed and hemostasis verified. Some minor suture hole bleeding was controlled with placement of Surgicel and direct pressure. The portion of the graft which had been disconnected was dissected free for a couple centimeters distance from both incisions and then resected, and the overlying subcutaneous tissues closed to exclude the infected portion of the graft from the new incisions. The subcutaneous tissues at both incisions were closed with 3-0 Monocryl suture following which the skin incisions were closed with 4-0 subcuticular Monocryl suture and dressed with Dermabond. Attention was then turned to the infected portion of the graft. The Tegaderm which has been excluding this portion of the arm from the operative field was removed and a culture of the wound sent. A longitudinal elliptical incision was made excising the eroded skin overlying the infected portion of the graft. Dissection was carried down to the graft, which was completely dissected free of the surrounding tissues. 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 This portion of the graft was sent to microbiology for culture and a VAC dressing placed by the wound care team. The patient was taken to the recovery room in good condition. Estimated blood loss was minimal. There were no complications. Specimens are wound culture and graft for culture. The patient was felt to have an adequate length of AV graft above and below the operative segment to continue with dialysis using the graft, so the decision was made not to place a tunneled dialysis catheter.
[2020-03-22 12:31] LABS: Anion Gap 18 mmol/L (10-20); BUN (Urea Nitrogen) 26 mg/dL (9.8-20.1); Calc. Creatinine Clearance 24 mL/min (70-130); Calcium 9.4 mg/dL (7.8-10.44); Carbon Dioxide 27 mmol/L (23-31); Chloride 95 mmol/L (98-107); Estimated GFR-MDRD 19; Glucose 112 mg/dL (80-115); Magnesium 2.8 mg/dL (1.6-2.6); Potassium 3.3 mmol/L (3.5-5.1); Sodium 137 mmol/L (136-145)
--- NOTE | 2020-03-22 13:18 | CON ---
DATE OF CONSULTATION: HISTORY OF PRESENT ILLNESS: Maryuri Yeboah is a 64-year-old female, who is in the hospital a year or now for several days and apparently had some kind of surgery done for left arm access fistula for renal failure. Last night, she was found to be apparently in torsades. CPR was initiated. One amp of epinephrine was given. She right away became responsive and was transferred to the ICU, where she is there this morning. She is awake, responsive, speaks little Brazilian, Latvian patient. PAST MEDICAL HISTORY: End-stage renal disease, followed by Nephrology; chronic pain syndrome; diabetes; hypertension; hypothyroidism. SOCIAL HISTORY: No alcohol or tobacco abuse. HOME MEDICATIONS: Includes apparently, 1. Albuterol inhaler nebulizer several times a day. 2. Micardis 20. 3. Gabapentin 300 three times a day. 4. Hydrocodone. 5. Pletal 50. 6. Zocor 20. 7. Synthroid 25. 8. She has a Trelegy inhaler. 9. Protonix. 10. Toprol-XL 50. She is now on, 1. Vancomycin. 2. Asmanex inhaler. 3. Losartan. 4. Proventil. ALLERGIES: NONE. REVIEW OF SYSTEMS: Otherwise, unremarkable. PHYSICAL EXAMINATION: VITAL SIGNS: Temperature is 98, pulse is 50, blood pressure is 130/80, respirations are 18. GENERAL: Awake, alert, responsive. CHEST: No wheezing or crackles. CARDIAC: Normal S1 and S2. No gallops. ABDOMEN: No masses. LABORATORY DATA: White count 10,000, H and H 8 and 27, platelet count is low at 77. Blood gas yesterday, non-rebreather, pO2 was 165, pCO2 of . Creatinine is 6, BUN is 57. Lactic acid is 6. Total bilirubin is normal. elevated. She has left arm wound Staph aureus. IMPRESSION: Chronic renal failure; possibly Staphylococcus sepsis on vancomycin; diabetes; apparently history of chronic obstructive pulmonary disease; hypertension; unknown cardiac event yesterday, some kind of CPR initiated, though she was pretty much responsive with 1 amp of bicarb. Last chest x-ray was normal. I will repeat lab. Continue supportive care. May get input from Cardiology even though her echo was normal. Pulmonary Critical Care will follow while in the ICU. At this stage, basic support. This is a consultation note, 70 minutes, 50% direct patient care. Job ID: [id number]
[2020-03-22] MEDS ORDERED: Midazolam HCl 2 mg/2 ml Vial ONE (13:37)
[2020-03-22] MEDS ORDERED: Fentanyl 100 MCG/2 ML VIAL ONE (13:37)
--- NOTE | 2020-03-22 15:14 | CON ---
DATE OF CONSULTATION: CONSULTING PHYSICIAN: Prasanna Reed MD HISTORY OF PRESENT ILLNESS: The patient is a 64-year-old woman who presented after having a cardiac arrest. The patient has a previous history of hypertension, diabetes mellitus, and end-stage renal disease. The patient was admitted and underwent placement of an AV fistula. She was on telemetry when she suffered a cardiac arrest. The patient is unable to give a coherent history. She denied having any chest discomfort. The patient was transferred to the ICU. PAST MEDICAL HISTORY: 1. Diabetes mellitus. 2. Hypertension. 3. End-stage renal disease. PAST SURGICAL HISTORY: 1. Cholecystectomy. 2. Appendectomy. 3. AV graft fistula. MEDICATIONS: See nursing list. SOCIAL HISTORY: Nonsmoker. ALLERGIES: NSAIDS. PHYSICAL EXAMINATION: GENERAL: This is a confused woman, in no acute distress. VITAL SIGNS: Blood pressure 162/72, heart rate was 60. NECK: No jugular venous distention. LUNGS: Clear to auscultation. HEART: Regular rate and rhythm. Normal S1 and S2. A 1/6 systolic murmur. ABDOMEN: Nondistended. EXTREMITIES: No edema. Her left arm has a fistula that has swollen. LABORATORY RESULTS: Sodium 132, potassium 5.5, chloride 97, bicarbonate 18, BUN 58, creatinine 6.1, and glucose 136. White blood cell count 9.7, hemoglobin 8.5, hematocrit 27.0, and platelets 77. EKG sinus bradycardia with Q-waves suggestive of previous anterior infarct and poor R-wave progression. Telemetry monitoring asystole with long pauses. IMPRESSION: 1. Status post cardiac arrest secondary to asystole. 2. Severe bradycardia. 3. Diabetes mellitus. 4. Hypertension. 5. End-stage renal disease. PLAN: This patient presents with a cardiac arrest. The patient had developed severe bradycardia. From a cardiac standpoint, she was on a fairly high dose of metoprolol. This medication had been discontinued. The patient will be placed on IV dopamine. EP consultation will be obtained to see if it will be beneficial to put in a temporary pacemaker. Continue to monitor her to see if her bradycardia resolves. We will follow this patient with you through this hospitalization. Critical care note time is 45 minutes Job ID: [id number] MTDD
--- NOTE | 2020-03-22 15:17 | RAD ---
EXAM: CHEST ONE VIEW HISTORY: Placement of cardiac pacemaker. COMPARISON: 03/27/2020 FINDINGS: There has been interval placement of a single lead right-sided cardiac pacemaking device with single RV lead present. Cardiac silhouette remains enlarged. Pulmonary vasculature is within normal limits. Lungs are clear. No pneumothorax is visualized. No other interval change. IMPRESSION: 1. Interval placement of right-sided grade pacemaking device without evidence of pneumothorax. 2. Cardiomegaly.
--- NOTE | 2020-03-22 15:47 | PDOC.HOSPP ---
- Subjective Encounter Date: 03/22/20 Encounter Time: 08:00 Subjective: overnight, code blue, unresponsive, torsades requiring CPR for 2 minutes including administration of epi x 1, magnesium,reverted to sinus, responsive, transitioned to ICU. This morning, alert and oriented, complains of substernal chest pressure. Pending cardiology evaluation. - Objective Vital Signs & Weight: Vital Signs (12 hours) Temp Pulse Ox 03/22/20 08:00 98.8 F 99 03/22/20 06:00 98.7 F Weight Admit Weight 151 lb 6.4 oz Weight 151 lb 6.4 oz Most Recent Monitor Data Heart Rate from ECG 66 NIBP 151/69 NIBP BP-Mean 96 Respiration from ECG 18 SpO2 98 I&O: 03/21/20 03/22/20 03/23/20 06:59 06:59 06:59 Intake Total 560 500 100 Output Total 10 Balance 550 500 100 Result Diagrams: 03/22/20 05:07 03/22/20 11:46 Additional Labs: Accuchecks 03/22/20 03/22/20 03/21/20 11:25 05:01 20:41 POC Glucose 121 H 198 H 192 H Hospitalist ROS - Review of Systems Respiratory: denies: cough, shortness of breath, SOB with excertion, pleuritic pain Cardiovascular: reports: chest pain. denies: palpitations, orthopnea, paroxysmal noc. dyspnea Gastrointestinal: denies: nausea, vomiting, abdominal pain - Medication Medications: Active Medications Generic Name Dose Route Start Last Admin Trade Name Freq PRN Reason Stop Dose Admin Acetaminophen 650 mg 03/20/20 00:13 03/20/20 21:39 Tylenol PO 650 mg Q4H PRN Administration Headache/Fever/Mild Pain (1-3) Albuterol Sulfate 2 puff 03/20/20 13:00 03/22/20 13:38 Proventil Hfa INH Not Given O1LY-MU [facility] Famotidine 20 mg 03/20/20 09:00 03/22/20 09:27 Pepcid PO Not Given DAILY ROLANDO Furosemide 40 mg 03/20/20 09:00 03/22/20 09:28 Lasix PO Not Given BID ROLANDO Gabapentin 300 mg 03/20/20 09:00 03/22/20 09:28 Neurontin PO Not Given BID ROLANDO Vancomycin HCl 750 mg/ Sodium 250 mls @ 250 mls/hr 03/20/20 02:00 03/22/20 12 :19 Chloride IVPB 03/26/20 00:01 250 mls WILLCALL ROLANDO Administration Sodium Chloride 1,000 mls @ 50 mls/hr 03/22/20 08:15 03/22/20 08:17 Normal Saline 0.9% IV 1,000 mls .Q20H ROLANDO Administration Insulin Human Lispro 0 units 03/20/20 02:48 03/22/20 06:39 Humalog SC 2 unit .MILD SLIDING SCALE PRN Administration Mild Correctional Scale Levothyroxine Sodium 25 mcg 03/20/20 06:00 03/22/20 06:37 Synthroid PO Not Given 0600 [facility] Losartan Potassium 25 mg 03/20/20 09:00 03/22/20 09:28 Cozaar PO Not Given DAILY [facility] Metoprolol Succinate 50 mg 03/20/20 09:00 03/22/20 09:28 Toprol Xl PO Not Given BID [facility] Mometasone Furoate 100 mcg 03/20/20 06:30 03/22/20 07:41 Asmanex Hfa 100 Mcg INH Not Given BID-RT [facility] Morphine Sulfate 2 mg 03/19/20 23:40 03/22/20 11:54 Morphine SLOW IVP 2 mg Q4H PRN Administration mod-severe pain 4-10 Ondansetron HCl 4 mg 03/19/20 23:40 03/21/20 21:03 Zofran IVP 4 mg Q6H PRN Administration Nausea/Vomiting, use 1st Polyethylene Glycol 17 gm 03/20/20 09:00 03/22/20 09:28 Miralax PO Not Given DAILY [facility] Simvastatin 20 mg 03/20/20 21:00 03/21/20 21:03 Zocor PO 20 mg HS ROLANDO Administration - Exam General Appearance: NAD, awake alert Heart: no murmur, no gallops, no rubs Heart - other findings: HR 60s-70s Respiratory: CTAB, no wheezes, no rales, no ronchi, normal chest expansion, no tachypnea Gastrointestinal: soft, non-tender Psychiatric: normal affect, normal behavior, A&O x 3 Hosp A/P - Plan #Torsades #Cardiac arrest - pending cardiology and EP evaluation; Nephrology onboard regarding electrolytes, pending HD # spontaneous fistula bleeding - pending bypass with resection of infected segment # sepsis due to MSSA bacteremia. Graft wound Cx SA. Responding to ABx so far, pending resection of infected segment # T2DM - well controlled # hypothyroidism - continue home meds # ESRD - nephrology onboard for HD #HTN - continue home regimen
[2020-03-22] MEDS: Simvastatin 20 MG TAB PO SCH (20:53)
[2020-03-22] MEDS: Acetaminophen 325 MG TAB PO PRN (22:31)
[2020-03-22] MEDS: hydrALAZINE 20 MG/ML VIAL SLOW IVP PRN (23:11)
[2020-03-23] MEDS: Albuterol 200 PUFF (6.7GM INHALER) INH SCH ×4 (01:10→18:47)
[2020-03-23 04:22] LABS: Anion Gap 22 mmol/L (10-20); BUN (Urea Nitrogen) 33 mg/dL (9.8-20.1); Calc. Creatinine Clearance 15 mL/min (70-130); Carbon Dioxide 22 mmol/L (23-31); Chloride 96 mmol/L (98-107); Estimated GFR-MDRD 11; Glucose 130 mg/dL (80-115); Sodium 136 mmol/L (136-145)
--- NOTE | 2020-03-23 05:38 | CON ---
DATE OF CONSULTATION: 03/22/2020 HISTORY OF PRESENT ILLNESS: I am seeing Ms. Yeboah at our [facility] as an Electrophysiology rehabilitation consultant. Her problems are 1. Episodic severe bradycardia requiring short resuscitation with sinus arrest of 6.5 second pauses and marked bradycardia following #2. 2. Torsade like activity on telemetry for simple artifact during the time of arrest. 3. Preserved LVEF of 60% to 65%, mildly dilated left atrium, right atrium. Right ventricular systolic pressures, Small pericardial effusion without tamponade. 4. End-stage renal disease, on hemodialysis. 5. Status post left upper extremity AV fistula, possible infection, on vancomycin. 6. Staph aureus bacteremia. 7. History of beta-hermann use. 8. History of hypertension. 9. History of hypothyroidism. 10. Anemia due to blood loss, bleed from fistula site. ALLERGIES: NONSTEROIDAL ANTI-INFLAMMATORY AGENTS. MEDICATIONS: At home included 1. Albuterol. 2. DuoNeb. 3. Micardis. 4. Neurontin. 5. Hydrocodone. 6. Tylenol. 7. Cilostazol. 8. Potassium chloride. 9. Simvastatin. 10. Levothyroxine. 11. Fluticasone. 12. Furosemide. 13. Pantoprazole. 14. Metoprolol succinate. 15. Triamcinolone Acetonide. 16. Hydroxyzine. 17. Vitamin E. 18. Polyethylene glycol. 19. Aspirin. SUBJECTIVE: Mrs. Yeboah is here due to a sepsis like picture and spontaneous bleeding from left AV fistula. She was noted to be anemic with hemoglobin levels lowest 8.2 noted. She did not require transfusion. On the other hand, she was noted to have persistent bacteremia with Staph aureus on blood cultures on and . She was noted to have septic picture initially with borderline blood pressures and fever. She underwent left upper extremity fistula surgical revision and she continues on vancomycin since then. She had chest pains on , but on the night she developed marked bradycardia. She was found unresponsive, marked pauses noted, possible torsade as well. CPR was initiated and epinephrine promptly restored sinus rhythm to sinus tach at 90 to 110 beats per minute. She was transferred to ICU and since she remains stable, she is not on pressors currently. She is mildly confused this morning. No acute symptoms are noted. Rest of 12-point system otherwise unremarkable. OBJECTIVE: VITAL SIGNS: Blood pressure is 160/72, heart rate 47, temperature is 98.8. The patient is afebrile. GENERAL: The patient is alert and oriented woman x1, Latvian-speaking only. Most history obtained from the chart. NECK: Supple. Jugular vein is not distended. CHEST: Coarse without crackles. HEART: Sounds are regular rate and rhythm. No murmur or gallop. ABDOMEN: Benign, bowel sounds positive. EXTREMITIES: Lower extremities without edema, clubbing, or cyanosis. Left upper extremity AV fistula in bandages. Dialysis is in progress. DATABASE: Admission EKG reviewed, revealing sinus rhythm, rate of 80 beats per minute, no significant ST-T changes. QT is 0.34 milliseconds. Subsequent EKGs reveal sinus rhythm up until the night of the event. Also, there was marked bradycardia. There is also torsade like activity seen in the single electrode rhythm strips, cannot completely rule out just artifact, underlying bradycardia. No significant QT prolongation is seen. LABORATORY DATA: White cell count is 9.7, hemoglobin 8.5, platelet count is 77. INR 1.5. Sodium 132, potassium 5.5, BUN is 58, creatinine 6.1. Lactic acid is 6.7. Albumin 2.9. Magnesium 4.1. The blood cultures from 03/19 and 03/21 has been revealing Staph aureus bacteremia. ASSESSMENT AND PLAN: Ms. Yeboah is a pleasant 64-year-old woman with history of end-stage renal disease, on dialysis. She is presenting with a septic picture and bleeding from the left upper extremity AV fistula site. She has had an episode of severe bradycardia for unclear reasons. Although she has been on chronic beta-hermann therapy, that unlikely the chronic cause of that. Mild hyperkalemia could be contributing but also thought likely to be only cause. Dr. Colon has evaluated the patient and requested to me for further EP evaluation. Paroxysmal bradycardia, unclear etiology, now it is improving, but still on the slower side. This could be due to the chronic beta-hermann use. Alternate reasons could be also thought including sepsis, progression carditis. Mild hyperkalemia is unlikely to be the sole contributor either. Possible sleep apnea also could contribute as well. Due to severe symptoms, need for cardiac resuscitation, further support might be considered. Temporary external pacing or internal pacing could be reasonable to avoid further events. At this point, I would hold off from permanent pacemaker implantation because of the recent bacteremia. If indeed no further recurrences occur after holding beta-hermann, she may not need permanent pacing long-term. We will obtain consent from the family for a temporary pacemaker implant. Risks , benefits, including bleeding, infection, cardiac tamponade will be discussed. We will schedule her for a near date after dialysis. Job ID: [id number] MTDD
[2020-03-23] MEDS: Levothyroxine Sodium 25 MCG TAB PO SCH (06:19)
[2020-03-23] MEDS: Sodium Chloride 0.9% 1,000 ML IV SCH (06:19)
[2020-03-23] MEDS: Mometasone 100 MCG/PUFF (1 INHALER) INH SCH ×2 (06:39→18:48)
--- NOTE | 2020-03-23 09:02 | PDOC.HOSPP ---
- Subjective Encounter Date: 03/23/20 Encounter Time: 08:00 Subjective: Hemodialysis, temporary pacemaker placed overnight. This morning, lying comfortably in bed. - Objective Vital Signs & Weight: Vital Signs (12 hours) Temp Pulse Resp BP BP Pulse Ox 03/23/20 07:08 97.2 F L 03/23/20 04:00 98.4 F 61 18 135/77 96 03/23/20 00:00 97.9 F 03/22/20 23:11 61 167/61 H 03/22/20 22:00 97.8 F 97 Weight Admit Weight 151 lb 6.4 oz Weight 153 lb 1.6 oz Most Recent Monitor Data Heart Rate from ECG 61 NIBP 111/53 NIBP BP-Mean 72 Respiration from ECG 17 SpO2 98 I&O: 03/22/20 03/23/20 03/24/20 06:59 06:59 06:59 Intake Total 500 1363 Output Total 2200 Balance 500 -837 Result Diagrams: 03/22/20 05:07 03/23/20 03:50 Additional Labs: Accuchecks 03/23/20 03/23/20 03/22/20 06:15 02:36 20:41 POC Glucose 129 H 146 H 106 03/22/20 03/22/20 03/22/20 16:23 11:25 05:01 POC Glucose 182 H 121 H 198 H Hospitalist ROS - Review of Systems Respiratory: denies: cough, dry, shortness of breath Cardiovascular: denies: chest pain Gastrointestinal: denies: nausea, vomiting, abdominal pain - Medication Medications: Active Medications Generic Name Dose Route Start Last Admin Trade Name Freq PRN Reason Stop Dose Admin Acetaminophen 650 mg 03/20/20 00:13 03/22/20 22:31 Tylenol PO 650 mg Q4H PRN Administration Headache/Fever/Mild Pain (1-3) Albuterol Sulfate 2 puff 03/20/20 13:00 03/23/20 06:38 Proventil Hfa INH 2 puff [id number] ROLANDO Administration Famotidine 20 mg 03/20/20 09:00 03/22/20 09:27 Pepcid PO Not Given DAILY ROLANDO Furosemide 40 mg 03/20/20 09:00 03/22/20 09:28 Lasix PO Not Given BID ROLANDO Gabapentin 300 mg 03/20/20 09:00 03/22/20 09:28 Neurontin PO Not Given BID ROLANDO Hydralazine HCl 10 mg 03/19/20 23:40 03/22/20 23:11 Apresoline SLOW IVP 10 mg Q6H PRN Administration SBP GREATER THAN 160 Vancomycin HCl 750 mg/ Sodium 250 mls @ 250 mls/hr 03/20/20 02:00 03/22/20 12 :19 Chloride IVPB 03/26/20 00:01 250 mls WILLCALL ROLANDO Administration Sodium Chloride 1,000 mls @ 50 mls/hr 03/22/20 08:15 03/23/20 06:19 Normal Saline 0.9% IV 1,000 mls .Q20H ROLANDO Administration Insulin Human Lispro 0 units 03/20/20 02:48 03/22/20 16:20 Humalog SC 2 unit .MILD SLIDING SCALE PRN Administration Mild Correctional Scale Levothyroxine Sodium 25 mcg 03/20/20 06:00 03/23/20 06:19 Synthroid PO 25 mcg 0600 ROLANDO Administration Losartan Potassium 25 mg 03/20/20 09:00 03/22/20 09:28 Cozaar PO Not Given DAILY ROLANDO Mometasone Furoate 100 mcg 03/20/20 06:30 03/23/20 06:39 Asmanex Hfa 100 Mcg INH 100 mcg BID-RT ROLANDO Administration Morphine Sulfate 2 mg 03/19/20 23:40 03/22/20 15:48 Morphine SLOW IVP 2 mg Q4H PRN Administration mod-severe pain 4-10 Ondansetron HCl 4 mg 03/19/20 23:40 03/21/20 21:03 Zofran IVP 4 mg Q6H PRN Administration Nausea/Vomiting, use 1st Polyethylene Glycol 17 gm 03/20/20 09:00 03/22/20 09:28 Miralax PO Not Given DAILY [facility] Simvastatin 20 mg 03/20/20 21:00 03/21/20 21:03 Zocor PO 20 mg HS ROLANDO Administration - Exam General Appearance: NAD, awake alert Heart: RRR, no gallops, no rubs Heart - other findings: 3/6 pansystolic murmur mostly 2nd intercostal Respiratory: CTAB, no wheezes, no rales, no ronchi Gastrointestinal: soft, non-tender, non-distended, normal bowel sounds Extremities: no edema Extremities - other findings: left upper extremity wound vac in place Psychiatric: normal affect, normal behavior Hosp A/P - Plan #symptomatic bradycardia #Cardiac arrest - considering no QTc prolongation when reverted to sinus, likely artifact rather than Torsades; POD1 s/p temporary transcutanous pacemaker; # spontaneous fistula bleeding - POD1 s/p bypass with resection of infected segment; wound vac in place # sepsis due to MSSA bacteremia. Consult ID for recommendations regarding prolonged treatment; currently responding to vancomycin # T2DM - well controlled # hypothyroidism - continue home meds # ESRD - nephrology onboard for HD #HTN - continue home regimen
[2020-03-23] MEDS ORDERED: Senokot S 8.6-50 MG TAB PO PRN (09:15)
--- NOTE | 2020-03-23 11:02 | PRG ---
DATE OF SERVICE: 03/23/2020 SUBJECTIVE: Ms. Yeboah is a 64-year-old female with ESRD and followed up by the [facility] for maintenance hemodialysis. She underwent hemodialysis yesterday. In addition, a temporary pacemaker was placed yesterday without any difficulty. The patient voices no new complaints today. She is feeling better. Please note, she was initially admitted for an infected AV graft. The graft has been re-explored by surgery. Currently, the patient is also on antibiotics. No new complaints today. OBJECTIVE: VITAL SIGNS: Blood pressure is 111/53, heart rate 61, respiratory rate 17, temperature 97.2, and O2 saturation 98%. GENERAL: Awake, alert, comfortable, not in distress. SKIN: Adequate turgor. HEENT: Slightly pale conjunctivae. Anicteric sclerae. NECK: No neck mass. No carotid bruits. No JVD. CHEST: No deformities. LUNGS: Clear breath sounds. HEART: Normal sinus rhythm. No murmur. No gallops. No rubs. ABDOMEN: Globular, soft, nontender. No masses. EXTREMITIES: No edema. No deformities. MEDICATIONS: Medications of March 23, 2020, reviewed. LABORATORY DATA: Laboratories of March 22, 2020; white count 9.7, hemoglobin 8.5. Sodium 136, potassium 4, chloride 96, carbon dioxide 22, BUN 33, creatinine 4.17, glucose 130, magnesium 3.0. ASSESSMENT AND PLAN: 1. End-stage renal disease - the patient to undergo hemodialysis. My plan is to do a 3-hour hemodialysis with this patient with fluid removal as tolerated. 2. Anemia. Continue to observe. Recheck CBC in a.m. 3. Fever - secondary to infected AV graft. The patient's graft has been re-explored by Dr. Moya. In addition, she is continued to receive IV vancomycin. 4. Bradycardia. The patient is status post pacemaker placement, doing well. 5. Recheck CBC and basic metabolic panel. Job ID: [id number]
[2020-03-23] MEDS: Morphine 2 MG/ML SYRINGE SLOW IVP PRN (11:47)
[2020-03-23] MEDS: Losartan 25 MG TAB PO SCH (12:57)
[2020-03-23] MEDS: Gabapentin 300 MG CAP PO SCH ×2 (12:57→20:38)
[2020-03-23] MEDS: Furosemide 40 MG TAB PO SCH ×2 (12:57→20:37)
[2020-03-23] MEDS: Famotidine 20 MG TAB PO SCH (12:57)
[2020-03-23] MEDS: Polyethylene Glycol 3350 17 GM Packet PO SCH (12:58)
[2020-03-23 13:21] LABS: Troponin I 1.469 ng/mL (< 0.028)
[2020-03-23] MEDS ORDERED: Heparin 25,000 units/D5W 500 ML IVPB SCH (14:15)
[2020-03-23] MEDS ORDERED: Heparin 10,000 UNITS/ 10 ML VIAL SLOW IVP SCH (14:15)
[2020-03-23] MEDS ORDERED: Aspirin 325 MG TAB PO SCH (14:15)
[2020-03-23] MEDS ORDERED: Atorvastatin Calcium 40 MG TAB PO SCH ×2 (14:15→16:45)
[2020-03-23 14:41] LABS: Hemoglobin 8.1 g/dL (12.0-16.0)
[2020-03-23 14:42] LABS: Platelet Count 95 thou/uL (130-400)
[2020-03-23 15:18] LABS: Troponin I 1.305 ng/mL (< 0.028)
--- NOTE | 2020-03-23 17:02 | PRG ---
DATE OF SERVICE: 03/23/2020 PRESENT ILLNESS: Ms. Yeboah denies fevers or chills. She is having some procedural pain related to temporary pacemaker placement. Through the day, she has had a spontaneous heart rate in the 50s and 60s and has not required backup pacemaker activity. She is on antibiotics for infected AV graft. PHYSICAL EXAMINATION: VITAL SIGNS: Blood pressure 168/70, heart rate 72, saturation 94%. She is currently afebrile. GENERAL: Somewhat sleepy lady, but arouses. HEENT: Shows no adenopathy. She has a temporary pacemaker with the wire and internal pacing device attached to the external chest. LUNGS: Show bronchial breath sounds, but no wheezing. HEART: Regular rate and rhythm. ABDOMEN: Soft. There is no organomegaly. EXTREMITIES: She has 1+ edema. LABORATORY DATA: Hemoglobin today is 8, down from 10 on initial admission. Troponin is 1.3. Although, she has had placement of a pacemaker and has renal function which makes assessment difficult. Her cultures have demonstrated Staph aureus which appears to be methicillin sensitive. IMPRESSION: 1. Infected AV fistula. 2. Symptomatic bradycardia, requiring placement of the temporary pacemaker. This is probably secondary to rate controlling agents. Long-term decision regarding appropriate need for pacemaker placement is deferred to Cardiology. PLAN: The patient will continue to receive dialysis here and hopefully a decision can be made regarding a long-term placement of a pacemaker. Job ID: [id number]
[2020-03-23] MEDS: Acetaminophen 325 MG TAB PO PRN (17:20)
--- NOTE | 2020-03-23 17:34 | PDOC.EVN ---
Event Note - Event Note Event Note: 11:54 nurse paged, patient complaining of 10/10 substernal pain s/p dialysis, similar to pain she had prior to her procedure. Administered morphine, chest pain resolved. EKG showing lateral limb T-wave inversions that were present prior to pacemaker procedure. Troponin 1.5. Nurse reported some oozing surrounding tranvenous pacemaker site. Also reported that cardiology was contacted and recommended no anticoagulation and to continue same management.
[2020-03-23 18:16] LABS: Critical Call Chem Troponin I RESULT DECREASING
[2020-03-23 18:28] LABS: CKMB 3.2 ng/mL (0-6.6)
[2020-03-23] MEDS ORDERED: CEFAZOLIN 0.5 GM in Sodium Chloride 0.9% 100 ML IVPB SCH (19:45)
[2020-03-23] MEDS: CEFAZOLIN 2 GM in Premix Bag 1 BAG IVPB SCH (20:37)
[2020-03-23] MEDS ORDERED: Atorvastatin Calcium 20 MG TAB PO SCH (21:00)
--- NOTE | 2020-03-24 01:06 | CON ---
DATE OF CONSULTATION: 03/23/2020 REASON FOR CONSULTATION: Bacteremia. HISTORY OF PRESENT ILLNESS: A 64-year-old patient who has a history of type 2 diabetes, end-stage renal disease, on hemodialysis, as well as hypertension, who apparently noted that there was bleeding from her dialysis access in the left upper extremity. In the emergency room note, it is stated that this access was a fistula. Because of the bleeding, she went to the local ER. A bandage was applied. Hemostasis was achieved, and the patient was sent to the emergency room at [facility]. On arrival, blood pressure 160/80, pulse 90, respirations 24 , O2 saturation 94 and O2 sats went down to 88, pulse remained at 72, and initial exam, she was in no distress. The upper extremity showed a compression bandage in place. Pulses were present, and there was a thrill in the fistula. The bandage was removed, and suddenly brisk pulsatile blood flow was present from the patient's fistula. Bandage was reapplied to control the hemorrhage. The initial findings as well included a white cell count of 13, hemoglobin 9.7, platelets 108 with 84% neutrophils. INR 1.2. Sodium 133 and creatinine 6.07. Liver profile with normal transaminases and alkaline phosphatase 128, albumin 3.8. Urinalysis was normal. COVID-19 was checked and was negative. Dr. Moya was consulted, and their assessment was bleeding AV graft or fistula with fever. The blood cultures had turned positive by then with Staphylococcus aureus, so the patient had an intervention on 03/2012. The procedure was described, and there was no evidence of gross infection at the bleeding site such as cellulitis or abscess formation, so a suture was placed. However, three days later, the patient had a left upper AV fistula/graft revision, and local anesthesia was infused in the skin and subcutaneous tissues, and the area was dissected free circumferentially at both locations. A tunneler was obtained and brought up from the proximal to the distal incision after infusion of local anesthesia. A straight graft was secured to the tunneling, and the graft was drawn down through the subcutaneous tunnel being careful not to twist the graft. The proximal graft was clamped and divided to create a wide anastomosis in the distal portion, flushed with heparinized saline , and end-to-end anastomosis created between the proximal AV graft and the tunneled segment with a running 6-0 Prolene suture, and the same process was carried out at the distal portion of the graft. This distal portion had a well-incorporated stent present within that segment of the graft. Inflow was released. Clamps were removed. Hemostasis was verified. 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 This portion of the graft was sent for microbiology culture. Following that the patient developed severe bradycardia, requiring resuscitation for management of sinus arrest with 6.5-second pause. There was torsade-like activity, and EF was preserved. There is a small pericardial effusion, so the patient had a temporary pacemaker implanted, and a permanent pacemaker was not carried out because of the infection and bacteremia. The patient currently is awake. She is in the IMCU. She speaks only Ghanaian. She denies headaches. No neck pain or back pain. She has pain when she coughs in the midsternal location , and she has no shoulder pain. Some cough, but no sputum production. No dyspnea. No abdominal pain or diarrhea. She is voiding in the diaper. PAST MEDICAL HISTORY: Includes type 2 diabetes, end-stage renal disease, on hemodialysis through what appears to be a fistula, actually not a plastic graft , but I am not sure about that. She has had stenting of the distal end of the graft. Hypertension, hypothyroidism, appendectomy, cholecystectomy, hernia repair. FAMILY HISTORY: Type 2 diabetes. ALLERGIES: NONSTEROIDAL ANTI-INFLAMMATORY AGENTS. CURRENT MEDICATION LIST: 1. Albuterol. 2. Proventil. 3. Ecotrin. 4. Lipitor. 5. Clonidine. 6. Dextrose. 7. Lasix. 8. Insulin. 9. Losartan. 10. Vancomycin. 11. Sliding scale. PHYSICAL EXAMINATION: VITAL SIGNS: T-max 102.9 on the , she defervesced since. Blood pressure 160/70, pulse 77, respirations 21, O2 saturation 97. SKIN: The arm with the open wound, sort of elliptical shaped, very little erythema around the site. She does not have a Vaca catheter. She has a temporary pacemaker in the right subclavian position. No lymphadenopathy. HEENT: Ocular movements conjugate. Sclerae white. Pupils are equal. Oral cavity normal with quite a few missing teeth. No shoulder pain. No sternoclavicular joint pain. No back pain or neck pain. CHEST: Some tenderness on palpation of the midsternal area. LUNGS: With symmetric breath sounds. HEART: S1 and S2, regular rate without murmurs. ABDOMEN: Soft. Not distended or tender. No ascites. No bladder distention. EXTREMITIES: No joint inflammatory activity. No edema. Pulses are 1+ in dorsalis pedis. She is able to move all extremities equally. NEUROLOGIC: Awake, alert, oriented. Follows commands. Speech appears to be normal. Recollection is decent. LABORATORY STUDIES: White cell count is down to 9.7, hemoglobin 8.5, platelets 77, 62% neutrophils. INR 1.5. PH of 7.32, pCO2 33, PO2 165. Sodium is 131, creatinine 6.59, phosphorus 4.8. Urinalysis was normal. She had a COVID rule out, which was nondetected. We have 4 venous samples with Staphylococcus aureus retrieved. The organism is methicillin-susceptible. The patient had a chest x-ray and this showed cardiomegaly and a pacing device. There is an echocardiogram from 03/21 and this showed possible small flailing mass on the right aortic side of the aortic valve. ASSESSMENT: 1. End-stage renal disease secondary to type 2 diabetes, on hemodialysis through what appears to be an arteriovenous fistula. 2. Bleeding from the arteriovenous fistula site. 3. Fever with bacteremia as well as positive cultures for the same organism from the arteriovenous fistula sample submitted to the lab. DISCUSSION: The differential diagnosis includes AV fistula infection secondary to methicillin-susceptible Staph aureus with possible aortic valve endocarditis. AV fistula infections tend to be uncommon with incidence anywhere from 0.2 to 0.4 per 1000 fistula days compared with graft infections, which have a much higher incidence. Staphylococcus aureus and Staph epidermidis are the most common pathogens. It is not clear from the surgical description this is a graft or fistula. It appears that it is more likely to be a fistula since it did have a stent within it. It is possible if not likely that she also has aortic valve endocarditis associated with it, and a TRUDY would be recommended to confirm that finding since the aortic valve endocarditis due to Staph aureus can be associated with certain types of complications that can result in poor outcome such as a ring abscess and so on. For now, will switch her to cefazolin given after dialysis 3 g, or 1g daily while she is in hospital. Discontinue vancomycin. Continue treating for at least 6 weeks. Order TRUDY. Other sites of involvement including lungs, pericardium, spine are not apparent at this time. The bradycardia could be associated with complications related to endocarditis if it is found to be present. Job ID: [id number] MTDD
[2020-03-24] MEDS: Albuterol 200 PUFF (6.7GM INHALER) INH SCH ×2 (01:07→06:52)
[2020-03-24 03:20] LABS: #Eosinphils 0.1 thou/uL (0.0-0.7); #Lymphocytes 1.5 thou/uL (1.20-3.40); #Monocytes 0.9 thou/uL (0.11-0.59); #Neutrophils 5.8 thou/uL (1.40-6.50); %Basophils 0.4 % (0.0-1.0); %Eosinophils 0.8 % (0.0-10.0); %Lymphocytes 17.9 % (21.0-51.0); %Monocytes 10.3 % (0.0-10.0); %Neutrophils 70.5 % (42.0-75.0); Hemoglobin 7.6 g/dL (12.0-16.0); Mean Corpuscular HGB CONC 32.7 g/dL (32.0-36.0); Mean Corpuscular Hemoglobin 31.9 pg (27.0-31.0); Mean Corpuscular Volume 97.6 fL (78.0-98.0); Mean Platelet Volume 9.6 fL (7.4-10.4); Platelet Count 93 thou/uL (130-400); RBC Distribution Width 13.8 % (11.5-14.5); Red Blood Cell (RBC) Count 2.38 mill/uL (4.20-5.40); White Blood Cell (WBC) Count 8.2 thou/uL (4.8-10.8)
[2020-03-24 03:39] LABS: Anion Gap 20 mmol/L (10-20); BUN (Urea Nitrogen) 30 mg/dL (9.8-20.1); Calc. Creatinine Clearance 17 mL/min (70-130); Carbon Dioxide 20 mmol/L (23-31); Chloride 100 mmol/L (98-107); Estimated GFR-MDRD 12; Glucose 133 mg/dL (80-115); Potassium 3.7 mmol/L (3.5-5.1); Sodium 136 mmol/L (136-145)
[2020-03-24] MEDS: Acetaminophen 325 MG TAB PO PRN (05:43)
[2020-03-24] MEDS: Sodium Chloride 0.9% 1,000 ML IV SCH ×2 (05:43→19:42)
[2020-03-24] MEDS: Levothyroxine Sodium 25 MCG TAB PO SCH (05:43)
[2020-03-24] MEDS: Mometasone 100 MCG/PUFF (1 INHALER) INH SCH (06:52)
--- NOTE | 2020-03-24 07:09 | PDOC.HOSPP ---
- Subjective Encounter Date: 03/24/20 Encounter Time: 08:00 Subjective: no overnight events. This morning, laying comfortably in bed. Denies chest pain or shortness of breath - Objective Vital Signs & Weight: Vital Signs (12 hours) Temp Pulse Ox 03/24/20 04:00 99.4 F 03/24/20 00:00 97.6 F 03/23/20 20:00 98.5 F 98 Weight Admit Weight 151 lb 6.4 oz Weight 153 lb 14.4 oz Most Recent Monitor Data Heart Rate from ECG 63 NIBP 120/47 NIBP BP-Mean 71 Respiration from ECG 22 SpO2 99 I&O: 03/23/20 03/24/20 03/25/20 06:59 06:59 06:59 Intake Total 1363 1582 Output Total 2200 1000 Balance -837 582 Result Diagrams: 03/24/20 03:07 03/24/20 03:07 Additional Labs: Accuchecks 03/24/20 03/23/20 03/23/20 05:52 20:37 17:00 POC Glucose 118 H 145 H 160 H 03/23/20 10:47 POC Glucose 108 Hospitalist ROS - Review of Systems Respiratory: denies: shortness of breath Cardiovascular: denies: chest pain Gastrointestinal: denies: abdominal pain, diarrhea - Medication Medications: Active Medications Generic Name Dose Route Start Last Admin Trade Name Freq PRN Reason Stop Dose Admin Acetaminophen 650 mg 03/20/20 00:13 03/24/20 05:43 Tylenol PO 650 mg Q4H PRN Administration Headache/Fever/Mild Pain (1-3) Famotidine 20 mg 03/20/20 09:00 03/23/20 12:57 Pepcid PO 20 mg DAILY ROLANDO Administration Furosemide 40 mg 03/20/20 09:00 03/23/20 20:37 Lasix PO 40 mg BID ROLANDO Administration Gabapentin 300 mg 03/20/20 09:00 03/23/20 20:38 Neurontin PO 300 mg BID ROLANDO Administration Hydralazine HCl 10 mg 03/19/20 23:40 03/22/20 23:11 Apresoline SLOW IVP 10 mg Q6H PRN Administration SBP GREATER THAN 160 Sodium Chloride 1,000 mls @ 50 mls/hr 03/22/20 08:15 03/24/20 05:43 Normal Saline 0.9% IV 1,000 mls .Q20H ROLANDO Administration Cefazolin Sodium/Dextrose 2 gm 50 mls @ 100 mls/hr 03/23/20 20:00 03/23/20 20 :37 / Device IVPB 50 mls Q24HR ROLANDO Administration Cefazolin Sodium 0.5 gm/ 100 mls @ 200 mls/hr 03/23/20 19:45 03/23/20 20:45 Miscellaneous Medication 1 IVPB 100 mls each/ Sodium Chloride WILLCALL ROLANDO Administration Insulin Human Lispro 0 units 03/20/20 02:48 03/22/20 16:20 Humalog SC 2 unit .MILD SLIDING SCALE PRN Administration Mild Correctional Scale Levothyroxine Sodium 25 mcg 03/20/20 06:00 03/24/20 05:43 Synthroid PO 25 mcg 0600 ROLANDO Administration Losartan Potassium 25 mg 03/20/20 09:00 03/23/20 12:57 Cozaar PO 25 mg DAILY ROLANDO Administration Mometasone Furoate 100 mcg 03/20/20 06:30 03/24/20 06:52 Asmanex Hfa 100 Mcg INH 100 mcg BID-RT ROLANDO Administration Morphine Sulfate 2 mg 03/19/20 23:40 03/23/20 11:47 Morphine SLOW IVP 2 mg Q4H PRN Administration mod-severe pain 4-10 Ondansetron HCl 4 mg 03/19/20 23:40 03/21/20 21:03 Zofran IVP 4 mg Q6H PRN Administration Nausea/Vomiting, use 1st Polyethylene Glycol 17 gm 03/20/20 09:00 03/23/20 12:58 Miralax PO 17 gm DAILY ROLANDO Administration - Exam General Appearance: NAD, awake alert Heart: RRR, murmur present Heart - other findings: Telemetry reviewed. No alarmed Respiratory: CTAB, no wheezes, no rales, no ronchi Gastrointestinal: soft, non-tender, non-distended Gastrointestinal - other findings: attenuated bowel sounds Extremities: no edema Psychiatric: normal behavior, A&O x 3, flat affect Hosp A/P - Plan #NSTEMI - elevated Trop downtrending, normal CKMB suggests older insult that preceded pacemaker placement; continue to manage as per cardiology #symptomatic bradycardia #Cardiac arrest - considering no QTc prolongation when reverted to sinus, likely artifact rather than Torsades; POD2 s/p temporary transvenous pacemaker; no bradycardic episodes appreciated on telemetry # spontaneous fistula bleeding - POD2 s/p bypass with resection of infected segment # sepsis due to MSSA bacteremia. ID recommendations appreciated; on Cefazolin. Pending TRUDY # T2DM - well controlled # hypothyroidism - continue home meds # ESRD - nephrology onboard for HD; may benefit from gentler HD considering recurrent chest pain s/p HD sessions; defer to Nephrology #HTN - continue home regimen Disposition: care level can be deescalated pending cardiology evaluation
--- NOTE | 2020-03-24 08:21 | PRG ---
DATE OF SERVICE: 03/24/2020 SUBJECTIVE: Ms. Yeboah is a 64-year-old female, followed up by the [facility]al [facility] for her maintenance hemodialysis. She underwent hemodialysis yesterday, but we had to shorten treatment due to development of chest pain. This morning, she is asymptomatic. She denies any chest pain or shortness of breath. Due to the bradycardia, a temporary pacemaker was also placed with this patient. Please note, this patient was initially noted to have bradycardia, for that reason has a pacemaker placed. OBJECTIVE: VITAL SIGNS: Blood pressure is 139/53, heart rate 74, respiratory rate 21, O2 saturation 100%. GENERAL: Awake, alert, comfortable, not in overt distress. SKIN: Adequate turgor. HEENT: Slightly pale conjunctivae, anicteric sclerae. No neck mass. No carotid bruits. No JVD. CHEST: No deformities. LUNGS: Clear breath sounds. HEART: Normal sinus rhythm. No murmur. No gallops. No rubs. ABDOMEN: Globular, soft, nontender, no masses. EXTREMITIES: No edema, no deformities. MEDICATIONS: March 24, 2020, reviewed. LABORATORY DATA: March 24, 2020; white count 7.2, hemoglobin 7.6. Sodium 136, potassium 3.7, chloride 100, carbon dioxide 20, BUN 30, creatinine 3.7, calcium 8.0. ASSESSMENT AND PLAN: 1. Bradycardia-status post pacemaker placement. Cardiology is following. 2. Chest pain, transient in nature. The patient ruling out for myocardial infarction. 3. ESRD, stable. We will continue current Wednesday, , and Wednesday hemodialysis regimen. Fluid removal as tolerated. 4. Anemia. Recheck CBC, p.r.n. blood transfusion. 5. 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 ID following. 6. Recheck CBC and basic metabolic panel in a.m. Job ID: [id number]
[2020-03-24] MEDS ORDERED: Furosemide 40 MG TAB PO SCH (09:00)
[2020-03-24] MEDS ORDERED: EPINEPHrine 1 MG/10 ML Abboject SYRINGE ONE (09:34)
[2020-03-24] MEDS ORDERED: Calcium Chloride 1 GM/10 ML Abboject SYRINGE ONE (09:34)
[2020-03-24] MEDS ORDERED: Sodium Bicarb 50 MEQ/50 ML Abboject 8.4% SYRINGE ONE (09:34)
[2020-03-24] MEDS: Gabapentin 300 MG CAP PO SCH ×2 (10:19→21:56)
[2020-03-24] MEDS: Polyethylene Glycol 3350 17 GM Packet PO SCH (10:19)
[2020-03-24] MEDS: Losartan 25 MG TAB PO SCH (10:20)
[2020-03-24] MEDS: Aspirin 81 mg Enteric Coated Tablet PO SCH (10:20)
[2020-03-24] MEDS: Senokot S 8.6-50 MG TAB PO SCH ×2 (10:20→21:56)
[2020-03-24] MEDS: Famotidine 20 MG TAB PO SCH (10:20)
--- NOTE | 2020-03-24 12:59 | PRG ---
DATE OF SERVICE: 03/24/2020 SUBJECTIVE: Ms. Yeboah is complaining of chest pain. This was present yesterday and limited duration of her dialysis treatment. It does not seem that this is anginal in nature. Pacemaker remains in place with her underlying spontaneous rhythm in the 60s and pacemaker has remained in demand p.r.n. mode. PHYSICAL EXAMINATION: VITAL SIGNS: Blood pressure 149/69, heart rate is 68, respiratory rate is 15. She is afebrile. GENERAL: She is frail, [place]-speaking. CHEST: States that she is having chest pain. I cannot reproduce the pain with palpation over the chest, but she has no JVD and pacemaker device is seen over the anterior right chest via the right subclavian approach. HEART: Regular rate and rhythm. I do not hear a murmur. ABDOMEN: Soft. EXTREMITIES: She has trace ankle edema. LABORATORY DATA: White count 8200, hemoglobin is 7.6, about the same that she has been throughout her stay. Electrolytes today notable for a BUN of 30 and a creatinine of 3.7, both of which were consistent with her renal failure and ongoing dialysis. IMPRESSION: 1. Symptomatic bradycardia, probably secondary to medications and now resolved. I would anticipate that the pacemaker can be discontinued within the next 24 hours. 2. Renal failure with ongoing dialysis. PLAN: We will continue to observe on telemetry for the next 24 hours at which time, hopefully the pacemaker can be discontinued. Formal decision is deferred to Cardiology, but it does not appear as though she is going to need a permanent pacemaker at this point. Job ID: [id number]
[2020-03-24] MEDS ORDERED: Albumin 25% 25 GM/100 ML BOT IVPB ONE (18:15)
[2020-03-24] MEDS ORDERED: Albumin 5% 250 ML ONE (18:16)
[2020-03-24] MEDS ORDERED: Norepinephrine 8 MG/0.9% NS 250 ML IVPB SCH (19:00)
[2020-03-24 19:22] LABS: #Eosinphils 0.1 thou/uL (0.0-0.7); #Lymphocytes 3.2 thou/uL (1.20-3.40); #Monocytes 1.1 thou/uL (0.11-0.59); #Neutrophils 6.8 thou/uL (1.40-6.50); %Basophils 0.1 % (0.0-1.0); %Eosinophils 0.7 % (0.0-10.0); %Lymphocytes 28.5 % (21.0-51.0); %Monocytes 9.8 % (0.0-10.0); Hemoglobin 8.6 g/dL (12.0-16.0); Mean Corpuscular HGB CONC 32.4 g/dL (32.0-36.0); Mean Corpuscular Hemoglobin 31.1 pg (27.0-31.0); Mean Corpuscular Volume 95.8 fL (78.0-98.0); RBC Distribution Width 13.9 % (11.5-14.5); Red Blood Cell (RBC) Count 2.76 mill/uL (4.20-5.40)
[2020-03-24 19:29] LABS: MDiff Complete? YES; Platelet Count 50 thou/uL (130-400); Platelet Morphology Comment Appears Decreased; Polychromasia SLIGHT = 2-3 cells (100X) (0-2/hpf); White Blood Cell (WBC) Count 11.2 thou/uL (4.8-10.8)
[2020-03-24 19:32] LABS: CKMB 1.6 ng/mL (0-6.6)
[2020-03-24 19:40] LABS: Lactic Acid 5.9 mmol/L (0.5-2.2)
[2020-03-24] MEDS: CEFAZOLIN 2 GM in Premix Bag 1 BAG IVPB SCH (19:40)
[2020-03-24 20:21] LABS: Anion Gap 25 mmol/L (10-20); BUN (Urea Nitrogen) 33 mg/dL (9.8-20.1); Calc. Creatinine Clearance 13 mL/min (70-130); Calcium 8.7 mg/dL (7.8-10.44); Carbon Dioxide 15 mmol/L (23-31); Chloride 101 mmol/L (98-107); Estimated GFR-MDRD 9; Glucose 146 mg/dL (80-115); Potassium 4.5 mmol/L (3.5-5.1); Sodium 136 mmol/L (136-145)
[2020-03-24 20:23] LABS: Hemoglobin 8.4 g/dL (12.0-16.0); Mean Corpuscular HGB CONC 31.5 g/dL (32.0-36.0); Mean Corpuscular Hemoglobin 31.6 pg (27.0-31.0); Mean Platelet Volume 10.1 fL (7.4-10.4); Platelet Count 105 thou/uL (130-400); RBC Distribution Width 13.9 % (11.5-14.5); Red Blood Cell (RBC) Count 2.64 mill/uL (4.20-5.40)
[2020-03-24 20:25] LABS: INR-International Normal Ratio 1.3; Prothrombin Time 15.9 sec (12.0-14.7)
[2020-03-24] MEDS ORDERED: Heparin 25,000 units/D5W 500 ML IVPB SCH (20:30)
[2020-03-24] MEDS ORDERED: Heparin 10,000 UNITS/ 10 ML VIAL SLOW IVP SCH (20:30)
[2020-03-24] MEDS ORDERED: Nitroglycerin 50 MG/250 ML BOT 250 ML IVPB SCH (20:30)
--- NOTE | 2020-03-24 20:32 | RAD ---
SINGLE VIEW OF THE CHEST: Comparison: 03-22-10 History: Code B. Intubated for respiratory failure. FINDINGS: Single view of the chest shows an enlarged cardiomediastinal silhouette. An endotracheal tube is seen with its tip between the clavicles. An NG tube cannot be completely followed into the stomach as it is obscured by an overlying hemodynamic monitor. There is no evidence of consolidation, mass, or pleu ral effusion. The pacemaker is unchanged in position. IMPRESSION: 1. Appropriate position of endotracheal tube. 2. Unclear position of the NG tube. POS: RENÉA
[2020-03-24 20:38] LABS: Actual Bicarbonate (HCO3a) 15.6 mEq/L (22-28); CO2 Tension 28.6 mmHg (35.0-45.0); Calcium, Ionized 1.12 mmol/L (1.12-1.30); Carboxyhemoglobin (COHb) 1.4 gm% (0.0-3.0); Hemoglobin (Hb) 7.8 g/dL (12.0-16.0); O2 Tension (PaO2), arterial 209.8 mmHg (> 80.0); Potassium - ABG Lab 3.23 mmol/L (3.70-5.30); pH, Arterial 7.35 (7.35-7.45)
--- NOTE | 2020-03-24 20:39 | PDOC.EVN ---
Event Note - Event Note Event Note: Patient experienced cardiac arrest around 8pm. Acheived ROSC w/ appx 3-5 minutes CPR and epinephrine 1mg. Telemetry with no obvious kailash or tachyarrhythmia or changes prior to arrest, so therefore is likely a PEA arrest. After ROSC, given bicarb 1 am and 5mg IV magnesium. vitals stabilized w / Hr 50-60s and paced, Bps in 130-170 systolic range, intubated by Dr Phelan at bedside. Post arrest EKG w/ diffuse ST depressions in all leads (ST elevated in AvL), right sided EKG about the same, discussed with refrigeration installer Dr Colon who reviewed ekg/tele and recommended nitroglycerine drip titrate to sbp 120-130 and serial ekg, as well as heparin gtt which were ordered. Attempted to call family at number in chart, not successful (many attempts have been made in last few days with no success. appreciate help of all staff and physicians.
[2020-03-24 20:40] LABS: Puncture Site RBA
[2020-03-24 20:44] LABS: Anion Gap 26 mmol/L (10-20); BUN (Urea Nitrogen) 33 mg/dL (9.8-20.1); Band 7 % (5-11); Calc. Creatinine Clearance 13 mL/min (70-130); Calcium 8.9 mg/dL (7.8-10.44); Carbon Dioxide 15 mmol/L (23-31); Chloride 100 mmol/L (98-107); Eosinophils 1 % (0-10); Estimated GFR-MDRD 9; Glucose 134 mg/dL (80-115); Lymphocytes 34 % (21-51); MDiff Complete? YES; Magnesium 2.9 mg/dL (1.6-2.6); Metamyelocyte 2 % (0-0); Monocytes 8 % (0-10); Myelocyte 3 % (0-0); Neutrophil 43 % (42-75); Nucleated RBC 2 % (0); Phosphorus 4.9 mg/dL (2.3-4.7); Platelet Morphology Comment Appears Decreased; Polychromasia MODERATE = 3-4 cells (100X) (0-2/hpf); Promyelocytes 1 % (0-0); Reactive Lymphocytes 1 % (0-10); Sodium 136 mmol/L (136-145); White Blood Cell (WBC) Count 20.4 thou/uL (4.8-10.8)
[2020-03-24 20:45] LABS: Hemoglobin 8.4 g/dL (12.0-16.0); Platelet Count 104 thou/uL (130-400)
[2020-03-24 20:53] LABS: Lactic Acid 10.1 mmol/L (0.5-2.2)
[2020-03-24] MEDS ORDERED: Atorvastatin Calcium 40 MG TAB PO SCH (21:00)
[2020-03-24] MEDS ORDERED: Nitroglycerin 50 MG/250 ML BOT 250 ML ONE (21:11)
[2020-03-24] MEDS ORDERED: Milk Of Magnesia 30 ML UDCUP PO PRN (22:01)
[2020-03-24] MEDS ORDERED: Acetaminophen 650 MG Suppository PR PRN (22:01)
[2020-03-24] MEDS ORDERED: CCU Electrolyte Replacement 1 EACH IVPB ONE (22:01)
[2020-03-24] MEDS ORDERED: Mag-Al 1200 mg/1200 mg/30 ML UDCUP PO PRN (22:01)
[2020-03-24] MEDS ORDERED: SYSTANE 3.5 GM TUBE EA EYE PRN (22:01)
[2020-03-24] MEDS ORDERED: Acetaminophen 650 MG/20.3 ML UDCUP PO PRN (22:01)
[2020-03-24] MEDS ORDERED: Fentanyl BOLUS 250 ML IVPB PRN (22:08)
[2020-03-24] MEDS ORDERED: DISCONTINUE PREVIOUS NARCOTIC PAIN MEDICATIONS AND BENZODIAZEPINES FS SCH (22:08)
[2020-03-24] MEDS ORDERED: Lorazepam 2 MG/ML VIAL SLOW IVP PRN (22:08)
[2020-03-24] MEDS ORDERED: Propofol BOLUS 1,000 MG/100 ML VIAL IV PRN (22:08)
[2020-03-24] MEDS ORDERED: Morphine 2 MG/ML SYRINGE SLOW IVP PRN (22:08)
[2020-03-24] MEDS ORDERED: fentaNYL Citrate/PF 2,000 MCG in Sodium Chloride 0.9% 60 ML IV SCH (22:08)
[2020-03-24] MEDS ORDERED: Propofol 1,000 MG/100 ML VIAL IV PRN (22:08)
[2020-03-24] MEDS ORDERED: Ventilator Sedation Protocol 1 EACH FS SCH (22:15)
[2020-03-25] MEDS: hydrALAZINE 20 MG/ML VIAL SLOW IVP PRN (00:03)
[2020-03-25 00:26] LABS: Lactic Acid 1.1 mmol/L (0.5-2.2)
--- NOTE | 2020-03-25 01:16 | OP ---
DATE OF PROCEDURE: 03/24/2020 PROCEDURE PERFORMED: Left femoral vein triple-lumen catheter. INDICATION: Hypotension with absence of thoracic access. DESCRIPTION OF PROCEDURE: Consent was not obtained due to the emergency nature of the procedure. The patient has AV fistula in the left upper arm and has a temporary pacing wire in the right subclavian. I attempted to cannulate the left internal jugular vein, but instead cannulated the left carotid on two occasions, that approach was subsequently terminated. A left femoral vein triple-lumen catheter was then inserted in the usual fashion without complication. Ports were flushed. Good flow was noted. The line was secured in place, and appropriate dressing was placed. Procedure was uncomplicated, and the patient tolerated it well. No x-ray images required for placement. Job ID: [id number]
--- NOTE | 2020-03-25 01:56 | OP ---
DATE OF PROCEDURE: 03/24/2020 PROCEDURE PERFORMED: CPR and intubation. INDICATION: Bradycardia with loss of pulse. I was called to code blue due to the patient's falling heart rate and blood pressure. At the time of arrival, it appeared as though her heart rate was in the low 50s consistent with ventricular pacing. A pulse was not felt and CPR was initiated per protocol. She received epinephrine 1 mg, calcium 1 amp, and magnesium. After approximately 3 minutes of CPR, pulse was restored. She was orally intubated with a 7.5 endotracheal tube using laryngoscope. Tube position was confirmed with CO2 meter and was secured into place. An EKG demonstrates diffuse ST depression consistent with global ischemia. Case is discussed with the primary physicians, and they will be in touch with Cardiology. Ventilator is initiated with settings as per orders. Job ID: [id number]
[2020-03-25 03:19] LABS: #Basophils 0.1 thou/uL (0.0-0.2); #Eosinphils 0.1 thou/uL (0.0-0.7); #Lymphocytes 1.8 thou/uL (1.20-3.40); #Monocytes 1.3 thou/uL (0.11-0.59); #Neutrophils 12.6 thou/uL (1.40-6.50); %Basophils 0.3 % (0.0-1.0); %Eosinophils 0.6 % (0.0-10.0); %Lymphocytes 11.4 % (21.0-51.0); %Monocytes 8.3 % (0.0-10.0); %Neutrophils 79.5 % (42.0-75.0); Hemoglobin 6.9 g/dL (12.0-16.0); Mean Corpuscular HGB CONC 33.3 g/dL (32.0-36.0); Mean Corpuscular Volume 95.9 fL (78.0-98.0); Platelet Count 99 thou/uL (130-400); RBC Distribution Width 13.8 % (11.5-14.5); Red Blood Cell (RBC) Count 2.15 mill/uL (4.20-5.40); White Blood Cell (WBC) Count 15.9 thou/uL (4.8-10.8)
[2020-03-25 03:31] LABS: PTT 224.1 SEC (22.9-36.1)
[2020-03-25 03:54] LABS: Anion Gap 20 mmol/L (10-20); BUN (Urea Nitrogen) 42 mg/dL (9.8-20.1); Calc. Creatinine Clearance 13 mL/min (70-130); Calcium 8.1 mg/dL (7.8-10.44); Carbon Dioxide 22 mmol/L (23-31); Chloride 99 mmol/L (98-107); Estimated GFR-MDRD 9; Glucose 183 mg/dL (80-115); Potassium 3.7 mmol/L (3.5-5.1); Sodium 137 mmol/L (136-145)
--- NOTE | 2020-03-25 05:11 | PDOC.EVN ---
Event Note - Event Note Event Note: Called to evaluate patient. Per nursing staff patient continues to be hypotensive after multiple blood pressure reads. Upon evaluation of the the patient she complains of pain all over her body and states she does not feel well. Map around 50-60's. Normal saline bolus of 500ml started with albumin. Rapid response called, ekg and blood work done. Pt's blood pressure initially improved but she continued to feel bad. She complained of pain to her chest and neck area. Per her records she went into cardiac arrhythmia on 03/20. Given her labile blood pressure she was moved to CCU for closer monitoring and injection molder called for central line placement. Levophed ordered. Will also transfuse one unit of blood given her borderline HH. Family called however was not reachable.
[2020-03-25 05:44] LABS: #Lymphocytes 1.7 thou/uL (1.20-3.40); #Monocytes 1.1 thou/uL (0.11-0.59); #Neutrophils 9.9 thou/uL (1.40-6.50); %Basophils 0.1 % (0.0-1.0); %Eosinophils 0.4 % (0.0-10.0); %Lymphocytes 13.4 % (21.0-51.0); %Monocytes 8.7 % (0.0-10.0); %Neutrophils 77.4 % (42.0-75.0); Hemoglobin 6.8 g/dL (12.0-16.0); Mean Corpuscular HGB CONC 32.8 g/dL (32.0-36.0); Mean Corpuscular Hemoglobin 31.3 pg (27.0-31.0); Mean Corpuscular Volume 95.5 fL (78.0-98.0); Mean Platelet Volume 9.7 fL (7.4-10.4); Platelet Count 102 thou/uL (130-400); RBC Distribution Width 13.9 % (11.5-14.5); Red Blood Cell (RBC) Count 2.18 mill/uL (4.20-5.40); White Blood Cell (WBC) Count 12.7 thou/uL (4.8-10.8)
[2020-03-25] MEDS: Levothyroxine Sodium 25 MCG TAB PO SCH (05:48)
[2020-03-25 07:12] LABS: Actual Bicarbonate (HCO3a) 24.3 mEq/L (22-28); Base Excess (BEa) 1.7 mEq/L (-2.0 to +3.0); CO2 Tension 29.5 mmHg (35.0-45.0); Calcium, Ionized 1.07 mmol/L (1.12-1.30); Carboxyhemoglobin (COHb) 1.7 gm% (0.0-3.0); Hemoglobin (Hb) 7.4 g/dL (12.0-16.0); O2 Tension (PaO2), arterial 155.5 mmHg (> 80.0); Potassium - ABG Lab 3.47 mmol/L (3.70-5.30); pH, Arterial 7.53 (7.35-7.45)
[2020-03-25 07:13] LABS: ALV-art Gradient 92.825 (0-20); Puncture Site RRA
--- NOTE | 2020-03-25 07:46 | PDOC.HOSPP ---
- Subjective Encounter Date: 03/25/20 Encounter Time: 08:00 Subjective: overnight, hypotensive at around 6pm, received fluids and improved initially then became hypotensive again, bradycardic, tranfered to ICU. Currently, intubated and on pressors. Attempted to notify family multiple times but not available. reportedly visited last night. - Objective Vital Signs & Weight: Vital Signs (12 hours) Temp Pulse Resp BP Pulse Ox 03/25/20 06:45 51 L 130/61 03/25/20 06:00 14 03/25/20 04:00 98.5 F 03/25/20 02:00 14 03/25/20 00:03 61 202/78 H 03/25/20 00:00 98.0 F 03/24/20 22:00 14 03/24/20 21:00 98.1 F 99 Weight Admit Weight 151 lb 6.4 oz Weight 151 lb 10.848 oz Most Recent Monitor Data Heart Rate from ECG 50 NIBP 123/58 NIBP BP-Mean 79 Respiration from ECG 16 SpO2 95 I&O: 03/24/20 03/25/20 03/26/20 06:59 06:59 06:59 Intake Total 1582 892.2 Output Total 1000 350 Balance 582 542.2 Result Diagrams: 03/25/20 05:30 03/25/20 03:05 Additional Labs: Accuchecks 03/25/20 03/24/20 03/24/20 05:50 18:23 16:58 POC Glucose 138 H 221 H 140 H 03/24/20 10:44 POC Glucose 149 H Hospitalist ROS - Review of Systems ROS unobtainable: due to endotracheal tube - Medication Medications: Active Medications Generic Name Dose Route Start Last Admin Trade Name Freq PRN Reason Stop Dose Admin Acetaminophen 650 mg 03/20/20 00:13 03/24/20 05:43 Tylenol PO 650 mg Q4H PRN Administration Headache/Fever/Mild Pain (1-3) Aspirin 81 mg 03/24/20 09:00 03/24/20 10:20 Ecotrin PO 81 mg DAILY ROLANDO Administration Atorvastatin Calcium 80 mg 03/24/20 21:00 03/24/20 21:56 Lipitor PO 80 mg HS ROLANDO Administration Famotidine 20 mg 03/20/20 09:00 03/24/20 10:20 Pepcid PO 20 mg DAILY ROLANDO Administration Gabapentin 300 mg 03/20/20 09:00 03/24/20 21:56 Neurontin PO 300 mg BID ROLANDO Administration Hydralazine HCl 10 mg 03/19/20 23:40 03/25/20 00:03 Apresoline SLOW IVP 10 mg Q6H PRN Administration SBP GREATER THAN 160 Sodium Chloride 1,000 mls @ 50 mls/hr 03/22/20 08:15 03/24/20 19:42 Normal Saline 0.9% IV 1,000 mls .Q20H ROLANDO Administration Cefazolin Sodium/Dextrose 2 gm 50 mls @ 100 mls/hr 03/23/20 20:00 03/24/20 19 :40 / Device IVPB 50 mls Q24HR ROLANDO Administration Cefazolin Sodium 0.5 gm/ 100 mls @ 200 mls/hr 03/23/20 19:45 03/23/20 20:45 Miscellaneous Medication 1 IVPB 100 mls each/ Sodium Chloride WILLCALL ROLANDO Administration Norepinephrine Bitartrate 250 mls @ 0 mls/hr 03/24/20 19:00 03/24/20 19:35 Levophed IVPB 250 mls INF ROLANDO Administration Protocol Titrate Nitroglycerin/Dextrose 250 mls @ 0 mls/hr 03/24/20 20:30 03/24/20 21:33 Nitroglycerin 50 Mg/250 Ml Bot IVPB 250 mls INF ROLANDO Administration Protocol Titrate Heparin Sodium/Dextrose 500 mls @ 0 mls/hr 03/24/20 20:30 03/24/20 21:29 Heparin 25,000 Units/D5w IVPB 500 mls INF ROLANDO Administration Protocol Per Protocol Fentanyl Citrate 2,000 mcg/ 100 mls @ 0 mls/hr 03/24/20 22:08 03/24/20 22:30 Sodium Chloride IV 04/23/20 22:08 100 mls INF ROLANDO Administration Protocol Per Protocol Insulin Human Lispro 0 units 03/20/20 02:48 03/22/20 16:20 Humalog SC 2 unit .MILD SLIDING SCALE PRN Administration Mild Correctional Scale Levothyroxine Sodium 25 mcg 03/20/20 06:00 03/25/20 05:48 Synthroid PO 25 mcg 0600 ROLANDO Administration Morphine Sulfate 2 mg 03/19/20 23:40 03/23/20 11:47 Morphine SLOW IVP 2 mg Q4H PRN Administration mod-severe pain 4-10 Ondansetron HCl 4 mg 03/19/20 23:40 03/21/20 21:03 Zofran IVP 4 mg Q6H PRN Administration Nausea/Vomiting, use 1st Polyethylene Glycol 17 gm 03/20/20 09:00 03/24/20 10:19 Miralax PO 17 gm DAILY ROLANDO Administration Propofol 1,000 mg 03/24/20 22:08 03/25/20 00:06 Diprivan IV 04/23/20 22:08 1,000 mg INF PRN Administration TO ACHIEVE GOAL RASS Protocol Senna/Docusate Sodium 2 tab 03/24/20 09:00 03/24/20 21:56 Senokot S PO 2 tab BID ROLANDO Administration - Exam General Appearance: ill appearing Eye: PERRL, anicteric sclera Neck: no JVD Heart: RRR, no gallops, no rubs, murmur present, III/IV Heart - other findings: transvenous pacemaker in place Respiratory: CTAB, no wheezes, no rales, no ronchi Respiratory - other findings: intubated Gastrointestinal: soft, non-distended, normal bowel sounds Extremities - other findings: left remoral triple lumen in place; left arm wound vac in place Neurological - other findings: contracts to pain Psychiatric - other findings: intubated and sedated Hosp A/P - Plan #cardiac arrest -second episode this admission; 3 minutes, required CPR -currently intubated and sedated (respiratory alkalosis), on pressors -Troponin elevated; EKG showing GWYN AVR > V1, reciprocal diffuse ST depression, evolution of EKG over less than 30 minutes worrisome for LMCA occlusion; Cardiology contacted by supervisor adult education physician and per recs was started on anticoagulation -PE possibility but based on Well's score low risk and no specific findings of right heart strain on EKG; pending TRUDY #symptomatic bradycardia (03/22) - considering no QTc prolongation when reverted to sinus, likely artifact rather than Torsades; POD3 s/p temporary transvenous pacemaker; # spontaneous fistula bleeding #Acute anemia POD3 s/p bypass with resection of infected segment; no overt bleeding since the procedure Hgb 7.9 in context of ACS; transfuse 1 PRBC # MSSA bacteremia. Afebrile since initiation of ABx. Transitioned to Cefazolin per ID. Heart murmur on exam, Pending TRUDY # T2DM - well controlled # hypothyroidism - continue home meds # ESRD - nephrology onboard for HD; may benefit from gentler HD considering recurrent chest pain s/p HD sessions; defer to Nephrology #HTN - currently on pressors Disposition: Poor prognosis. Attempted to call daughter (10:20am) but again no answer.
--- NOTE | 2020-03-25 08:36 | PRG ---
DATE OF SERVICE: SUBJECTIVE: Maryuri Yeboah is a 64-year-old female with end-stage renal disease. She was intubated yesterday for hypertension, bradycardia. Apparently, Cardiology was notified. This morning, she is sedated, but awake and responsive. OBJECTIVE: VITAL SIGNS: Pulse is 51, blood pressure 130/64, respirations 18. She is afebrile. CHEST: Decreased breath sounds. No wheezing. CARDIAC: Normal S1 and S2. No gallops. ABDOMEN: No masses. LABORATORY DATA: White count 12,000, H and H 6 and 20, platelet count is 102. PO2 is 155, pCO2 of . Creatinine 4.8. ASSESSMENT: Renal failure, Staph sepsis, bradycardia, hypertension, and anemia. Unknown cardiac event. PLAN: Transfuse 2 units of packed cells. We will hopefully minimize sedation, try and wean and extubate in the next 24 hours. Otherwise, PT, supportive care. Antibiotics. One-half hour of critical time. Job ID: [id number]
[2020-03-25] MEDS: Famotidine/PF 20 mg/2ml Vial SLOW IVP SCH ×2 (09:00→11:04)
[2020-03-25] MEDS: Polyethylene Glycol 3350 17 GM Packet PO SCH (09:00)
[2020-03-25] MEDS: Gabapentin 300 MG CAP PO SCH (09:00)
[2020-03-25] MEDS: Aspirin 81 mg Enteric Coated Tablet PO SCH ×2 (09:00→11:04)
[2020-03-25] MEDS: Senokot S 8.6-50 MG TAB PO SCH (09:00)
[2020-03-25] MEDS: Famotidine 20 MG TAB PO SCH (09:00)
--- NOTE | 2020-03-25 09:14 | PRG ---
DATE OF SERVICE: 03/25/2020 SUBJECTIVE: Ms. Yeboah is a 64-year-old female with ESRD and followed up by the Renal Service for management of her ESRD. She underwent hemodialysis last Wednesday without any difficulty. Over the last 12 hours, she was noted to have gone to a cardiorespiratory arrest and she had a CPR done and intubated. She was said to be resuscitated. This morning, the patient is intubated, is awake, alert, and can follow commands. OBJECTIVE: VITAL SIGNS: Blood pressure is 123/58 with a heart rate of 51, respiratory rate 16, O2 saturation 95%. GENERAL: She is noted to be awake, alert, intubated on ventilator support. SKIN: Adequate turgor. HEENT: Slightly pale conjunctivae. Anicteric sclerae. NECK: No neck mass. No carotid bruits. No JVD. CHEST: No deformities. LUNGS: Clear breath sounds. HEART: Normal sinus rhythm. No murmur. No gallops. No rubs. ABDOMEN: Globular, soft, nontender. No masses. EXTREMITIES: No edema. No deformities. MEDICATIONS: On March 25, 2020, were reviewed. LABORATORY DATA: On March 25, 2020; white count is 12.7, hemoglobin is 6.8, hematocrit 20.8. Sodium 137, potassium 3.7, chloride 99, carbon dioxide 22, BUN is 20, creatinine 4.2, glucose 183. Lactic acid is 10.1. Calcium is 8.1. Troponin I is 0.635. ASSESSMENT AND PLAN: 1. Status post cardiorespiratory arrest-supportive care. Currently, intubated on ventilator support. Cardiology following. 2. End-stage renal disease, stable. No indication for any emergent hemodialysis. Continue Wednesday, , and Wednesday dialysis regimen. Fluid removal as tolerated by the patient. 3. Anemia-p.r.n. blood transfusion. We will attempt to transfuse tomorrow with dialysis. 4. Infected AV graft. The patient is stable and the patient has been on IV antibiotics. She is currently on IV cefazolin as recommended by ID. 5. Overall, prognosis remains guarded. Case discussed at length with the daughter. Job ID: [id number]
[2020-03-25] MEDS ORDERED: Rocuronium Bromide 50 MG/5 ML VIAL IVP SCH (10:30)
[2020-03-25] MEDS ORDERED: Nitroglycerin 50 MG/250 ML BOT 250 ML ONE (10:31)
--- NOTE | 2020-03-25 11:14 | PDOC.EP ---
- Subjective Date: 03/25/20 Time: 11:12 Interval History: Followup for rhythm management s/p temporary PPM implant Thursday 03/22. Patient intubated and sedated in critical condition. Planning transfer to [place]. - Review of Systems ROS unobtainable: due to endotracheal tube - Objective Allergies/Adverse Reactions: Allergies Allergy/AdvReac Type Severity Reaction Status Date / Time NSAIDS (Non-Steroidal Allergy Verified 03/20/20 07:23 Anti-Inflamma Current Medications Acetaminophen (Tylenol) 650 mg PO Q4H PRN PRN Reason: Headache/Fever/Mild Pain (1-3) Last Admin: 03/24/20 05:43 Dose: 650 mg Acetaminophen (Tylenol) 650 mg [place] Q6H PRN PRN Reason: Fever > 101 or Mild Pain Acetaminophen (Tylenol Elixir) 650 mg PO Q6H PRN PRN Reason: Fever > 101 or Mild Pain Al Hydroxide/Mg Hydroxide (Maalox) 30 ml PO Q8H PRN PRN Reason: Indigestion Albuterol/Ipratropium (Duoneb) 3 ml NEB [id number] PRN PRN Reason: SOB &/or Wheezing Aspirin (Ecotrin) 81 mg PO DAILY [facility] Last Admin: 03/25/20 11:04 Dose: 81 mg Atorvastatin Calcium (Lipitor) 80 mg PO HS [facility] Last Admin: 03/24/20 21:56 Dose: 80 mg Bisacodyl (Dulcolax) 10 mg PO DAILYPRN PRN PRN Reason: Constipation Bisacodyl (Dulcolax) 10 mg [place] DAILYPRN PRN PRN Reason: Constipation Dextrose/Water (Dextrose 50%) 25 gm SLOW IVP PRN PRN PRN Reason: Hypoglycemia Famotidine (Pepcid) 20 mg PO DAILY [facility] Last Admin: 03/25/20 09:00 Dose: Not Given Famotidine (Pepcid) 20 mg SLOW IVP DAILY [facility] Last Admin: 03/25/20 11:04 Dose: 20 mg Gabapentin (Neurontin) 300 mg PO BID [facility] Last Admin: 03/25/20 09:00 Dose: Not Given Glucagon (Glucagon) 1 mg IM PRN PRN PRN Reason: Hypoglycemia Guaifenesin/Dextromethorphan (Robitussin Dm) 15 ml PO Q4H PRN PRN Reason: Cough Heparin Sodium (Porcine) (Heparin 1,000 Units/Ml (10 Ml)) 0 units SLOW IVP ASDIR ROLANDO; Protocol Hydralazine HCl (Apresoline) 10 mg SLOW IVP Q6H PRN PRN Reason: SBP GREATER THAN 160 Last Admin: 03/25/20 00:03 Dose: 10 mg Hydroxyzine HCl (Atarax) 25 mg PO Q6H PRN PRN Reason: Itching Promethazine HCl 12.5 mg/ (Sodium Chloride) 50.5 mls @ 202 mls/hr IVPB Q6H PRN PRN Reason: Nausea/vomiting, use second Dextrose/Water (D5w) 1,000 mls @ 0 mls/hr IV .Q0M PRN PRN Reason: Hypoglycemia Sodium Chloride (Normal Saline 0.9%) 1,000 mls @ 50 mls/hr IV .Q20H ROLANDO Last Admin: 03/24/20 19:42 Dose: 1,000 mls Cefazolin Sodium/Dextrose 2 gm (/ Device) 50 mls @ 100 mls/hr IVPB Q24HR [facility]OL[facility] Last Admin: 03/24/20 19:40 Dose: 50 mls Cefazolin Sodium 0.5 gm/Miscellaneous Medication 1 each/ Sodium Chloride 100 mls @ 200 mls/hr IVPB WILLCALL ROLANDO Last Admin: 03/23/20 20:45 Dose: 100 mls Norepinephrine Bitartrate (Levophed) 250 mls @ 0 mls/hr IVPB INF ROLANDO; Protocol Last Admin: 03/24/20 19:35 Dose: 250 mls Nitroglycerin/Dextrose (Nitroglycerin 50 Mg/250 Ml Bot) 250 mls @ 0 mls/hr IVPB INF ROLANDO; Protocol Last Admin: 03/24/20 21:33 Dose: 250 mls Heparin Sodium/Dextrose (Heparin 25,000 Units/D5w) 500 mls @ 0 mls/hr IVPB INF ROLANDO; Protocol Last Admin: 03/24/20 21:29 Dose: 500 mls Fentanyl Citrate 2,000 mcg/ (Sodium Chloride) 100 mls @ 0 mls/hr IV INF ROLANDO; Protocol Stop: 04/23/20 22:08 Last Admin: 03/24/20 22:30 Dose: 100 mls Fentanyl Citrate (Fentanyl Bolus) 250 mls @ 0 mls/hr IVPB PRN PRN PRN Reason: Breakthrough pain/agitation Stop: 04/23/20 22:08 Insulin Human Lispro (Humalog) 0 units SC .MILD SLIDING SCALE PRN PRN Reason: Mild Correctional Scale Last Admin: 03/22/20 16:20 Dose: 2 unit Insulin Human Lispro (Humalog) 0 units SC .BEDTIME SLIDING SC PRN PRN Reason: Bedtime Correctional Scale Levothyroxine Sodium (Synthroid) 25 mcg PO 0600 [facility] Last Admin: 03/25/20 05:48 Dose: 25 mcg Lorazepam (Ativan) 2 mg SLOW IVP Q1H PRN PRN Reason: Breakthrough agitation Stop: 04/23/20 22:08 Magnesium Hydroxide (Milk Of Magnesium) 30 ml PO Q8H PRN PRN Reason: Constipation Mineral Oil/White Petrolatum (Systane Nighttime Eye Ointment) 0 gm EA EYE PRN PRN PRN Reason: Dry Eyes Morphine Sulfate (Morphine) 2 mg SLOW IVP Q4H PRN PRN Reason: mod-severe pain 4-10 Last Admin: 03/23/20 11:47 Dose: 2 mg Morphine Sulfate (Morphine) 2 mg SLOW IVP Q1H PRN PRN Reason: BREAKTHROUGH PAIN/Agitation Stop: 04/23/20 22:08 Hold Vancomycin For (Level >20) 0 each FS .AT DIALYSIS [facility] Stop: 03/27/20 12:00 Ondansetron HCl (Zofran) 4 mg IVP Q6H PRN PRN Reason: Nausea/Vomiting, use 1st Last Admin: 03/21/20 21:03 Dose: 4 mg Polyethylene Glycol (Miralax) 17 gm PO DAILY [facility] Last Admin: 03/25/20 09:00 Dose: Not Given Propofol (Diprivan) 1,000 mg IV INF PRN; Protocol PRN Reason: TO ACHIEVE GOAL RASS Stop: 04/23/20 22:08 Last Admin: 03/25/20 00:06 Dose: 1,000 mg Propofol (Diprivan Bolus) 20 mg IV Q5MIN PRN PRN Reason: BREAKTHROUGH AGITATION Stop: 04/23/20 22:08 Rocuronium Clay (Zemuron) 100 mg IVP NOW [facility] Stop: 03/25/20 12:00 Last Admin: 03/25/20 11:01 Dose: 100 mg Senna/Docusate Sodium (Senokot S) 2 tab PO BID ROLANDO Last Admin: 03/25/20 09:00 Dose: Not Given Vital Signs & Weight: Vital Signs Temp Pulse Resp BP 03/25/20 10:56 55 L 85/40 L 03/25/20 06:45 51 L 130/61 03/25/20 06:00 14 03/25/20 04:00 98.5 F 14 03/25/20 02:00 14 03/25/20 00:03 61 202/78 H 03/25/20 00:00 98.0 F 19 Admit Weight 151 lb 6.4 oz Weight 151 lb 10.848 oz I/O: I/O 03/24/20 03/25/20 03/26/20 06:59 06:59 06:59 Intake Total 1582 892.2 Output Total 1000 350 Balance 582 542.2 - Physical Exam General: other (intubated/sedated) Neck: supple neck, no JVD/HJR, no lymphadenopathy Cardiology: regular rate and rhythm, regular rate, systolic murmur Lungs: no wheeze, rales, rhonchi, ventilated respirations Skin: right sided device (single wire external pacemaker. VVI @ 50) - Labs Result Diagrams: 03/25/20 12:43 03/25/20 03:05 - EKG Interpretation EKG Method: Telemetry EKG shows: Sinus rhythm - Device Device: single, pacemaker (external. Site stable) Device Result: [employer]onic - Assessment/Plan Assessment/Plan: 1. Sinus arrest, pauses up to 6.5 seconds -s/p external single wire medtronic pacemaker/temporary. placed 03/22. Will set to VVI 60 bpm, - Minimal pacing required, no HR <50bpm. Keep temp pacer in place 2. Sepsis - MSSA bacteremia - concern for vegetation, unable to do TRUDY today due to hypotension 3. ESRD - on HD 4. Preserved EF - echo showed 60-65% 5. Acute anemia - PRBC transfusion ordered, Hgb 6.8 on 03/25 SR and sinus tach have been fluctuating on monitor. There is concern for ischemia. The temp pacer is working well, minimal pacing has been seen/ required. OK to leave in place with upcoming transfer. Maintain sterile dressing.
[2020-03-25 12:57] LABS: Hemoglobin 8.6 g/dL (12.0-16.0); Platelet Count 110 thou/uL (130-400)
[2020-03-25] MEDS: HumaLOG 300 UNITS/3 ML VIAL SC PRN (13:22)
[2020-03-25 13:28] VITALS: BMI 26.9
[2020-03-25] MEDS ORDERED: Hydrocortisone Sod Succ/PF 100 mg/2 ml Vial IVP SCH (14:00)
--- NOTE | 2020-03-25 16:26 | EKG ---
Test Reason : Blood Pressure : / mmHG Vent. Rate : 061 BPM Atrial Rate : 061 BPM P-R Int : 180 ms QRS Dur : 096 ms QT Int : 462 ms P-R-T Axes : 066 030 123 degrees QTc Int : 465 ms Normal sinus rhythm Possible Inferior infarct (cited on or before 22-MAR-2020) Abnormal ECG When compared with ECG of 22-MAR-2020 05:41, No significant change was found Confirmed by CHUCK MELVIN, . SCatalina ([id number]) on 03/25/2020 4:26:03 PM Referred By: ROB Confirmed By:DR. Evangelina WOODS MD
--- NOTE | 2020-03-25 16:26 | EKG ---
Test Reason : Blood Pressure : / mmHG Vent. Rate : 069 BPM Atrial Rate : 069 BPM P-R Int : 192 ms QRS Dur : 094 ms QT Int : 444 ms P-R-T Axes : 063 038 128 degrees QTc Int : 475 ms Normal sinus rhythm with sinus arrhythmia Possible Inferior infarct (cited on or before 22-MAR-2020) Abnormal ECG When compared with ECG of 23-MAR-2020 11:59, (Unconfirmed) No significant change was found Confirmed by CHUCK MELVIN, . SCatalina ([id number]) on 03/25/2020 4:26:17 PM Referred By: ROB Confirmed By:DR. Evangelina WOODS MD
[2020-03-25 17:08] VITALS: TEMP 97.9
[2020-03-25 17:30] VITALS: BP 127/54
--- NOTE | 2020-03-25 21:07 | EKG ---
Test Reason : STAT Blood Pressure : / mmHG Vent. Rate : 078 BPM Atrial Rate : 107 BPM P-R Int : 000 ms QRS Dur : 104 ms QT Int : 418 ms P-R-T Axes : 000 074 132 degrees QTc Int : 476 ms Accelerated Junctional rhythm Incomplete right bundle branch block Prolonged QT Abnormal ECG When compared with ECG of 23-MAR-2020 14:09, (Unconfirmed) Junctional rhythm has replaced Sinus rhythm Incomplete right bundle branch block is now Present Borderline criteria for Inferior infarct are no longer Present T wave inversion more evident in Anterolateral leads Confirmed by Brenda ANDREWS ([id number]) on 03/25/2020 9:06:35 PM Referred By: ROB Confirmed By:Brenda ANDREWS
--- NOTE | 2020-03-25 21:08 | EKG ---
Test Reason : Blood Pressure : / mmHG Vent. Rate : 057 BPM Atrial Rate : 057 BPM P-R Int : 192 ms QRS Dur : 110 ms QT Int : 504 ms P-R-T Axes : 087 057 096 degrees QTc Int : 490 ms Sinus bradycardia Incomplete right bundle branch block Prolonged QT Abnormal ECG When compared with ECG of 24-MAR-2020 20:23, (Unconfirmed) Significant changes have occurred Confirmed by Brenda ANDREWS ([id number]) on 03/25/2020 9:08:30 PM Referred By: DENISE Confirmed By:Brenda ANDREWS
--- NOTE | 2020-03-25 21:08 | EKG ---
Test Reason : Blood Pressure : / mmHG Vent. Rate : 089 BPM Atrial Rate : 089 BPM P-R Int : 268 ms QRS Dur : 122 ms QT Int : 388 ms P-R-T Axes : 079 079 -61 degrees QTc Int : 472 ms Sinus rhythm with 1st degree A-V block Right bundle branch block Abnormal ST segments indicative of inferior,lateral ischemia. Abnormal ECG When compared with ECG of 24-MAR-2020 18:17, (Unconfirmed) Sinus rhythm has replaced Junctional rhythm Right bundle branch block has replaced Incomplete right bundle branch block ST now depressed in Inferior leads ST now depressed in Anterior leads T wave inversion now evident in Inferior leads Confirmed by Brenda ANDREWS ([id number]) on 03/25/2020 9:08:08 PM Referred By: ANNALEE Confirmed By:Brenda ANDREWS
--- NOTE | 2020-03-25 21:08 | EKG ---
Test Reason : RIGHT SIDED EKG Blood Pressure : / mmHG Vent. Rate : 057 BPM Atrial Rate : 057 BPM P-R Int : 184 ms QRS Dur : 110 ms QT Int : 414 ms P-R-T Axes : 088 060 191 degrees QTc Int : 402 ms Sinus bradycardia Incomplete right bundle branch block Cannot rule out Inferior infarct , age undetermined Possible Anterolateral infarct , age undetermined Abnormal ECG When compared with ECG of 24-MAR-2020 20:07, (Unconfirmed) Significant changes have occurred Confirmed by Brenda ANDREWS ([id number]) on 03/25/2020 9:08:21 PM Referred By: ANNALEE Confirmed By:Brenda ANDREWS
--- NOTE | 2020-03-25 21:11 | EKG ---
Test Reason : Blood Pressure : / mmHG Vent. Rate : 062 BPM Atrial Rate : 062 BPM P-R Int : 132 ms QRS Dur : 092 ms QT Int : 440 ms P-R-T Axes : 083 067 111 degrees QTc Int : 446 ms Normal sinus rhythm Cannot rule out Inferior infarct , age undetermined Abnormal ECG When compared with ECG of 24-MAR-2020 21:37, (Unconfirmed) Incomplete right bundle branch block is no longer Present Minimal criteria for Inferior infarct are now Present T wave inversion more evident in Anterior leads Confirmed by Brenda ANDREWS ([id number]) on 03/25/2020 9:11:40 PM Referred By: DENISE Confirmed By:Brenda ANDREWS
== END 2020-03-25 15:35 | disposition short-term general hospital (02) | DRG 252 ==
LOC: ERS 16:45 → T4-A 20:45 → 2NO 03-20 20:45 → CCU 03-22 05:19 → IMCU/EMU 03-22 21:48 → CCU 03-24 18:44
PROVIDERS: ADMIT Internal Medicine; ATTEND Internal Medicine
PROC: 0X3 Anatomical Regions, Upper Extremities, Control (ICD-10-PCS; principal; 2020-03-19)
PROC: 8E0ZXY6 Isolation (ICD-10-PCS; 2020-03-19)
PROC: 5A1D70Z Performance of Urinary Filtration, Intermittent, Less than 6 Hours Per Day (ICD-10-PCS; 2020-03-20)
PROC: 03WY0JZ Revision of Synthetic Substitute in Upper Artery, Open Approach (ICD-10-PCS; 2020-03-21)
PROC: 5A12012 Performance of Cardiac Output, Single, Manual (ICD-10-PCS; 2020-03-22)
PROC: 3E033XZ Introduction of Vasopressor into Peripheral Vein, Percutaneous Approach (ICD-10-PCS; 2020-03-22)
PROC: 5A1223Z Performance of Cardiac Pacing, Continuous (ICD-10-PCS; 2020-03-22)
PROC: B2111ZZ Fluoroscopy of Multiple Coronary Arteries using Low Osmolar Contrast (ICD-10-PCS; 2020-03-22)
PROC: 5A1935Z Respiratory Ventilation, Less than 24 Consecutive Hours (ICD-10-PCS; 2020-03-24)
PROC: 06HY33Z Insertion of Infusion Device into Lower Vein, Percutaneous Approach (ICD-10-PCS; 2020-03-24)
PROC: 5A12012 Performance of Cardiac Output, Single, Manual (ICD-10-PCS; 2020-03-24)
PROC: 3E033XZ Introduction of Vasopressor into Peripheral Vein, Percutaneous Approach (ICD-10-PCS; 2020-03-24)
PROC: 0BH17EZ Insertion of Endotracheal Airway into Trachea, Via Natural or Artificial Opening (ICD-10-PCS; 2020-03-24)
PROC: 30233N1 Transfusion of Nonautologous Red Blood Cells into Peripheral Vein, Percutaneous Approach (ICD-10-PCS; 2020-03-25)
DX: T82.838A Hemorrhage due to vascular prosthetic devices, implants and grafts, initial encounter (principal); N18.6 End stage renal disease; A41.01 Sepsis due to Methicillin susceptible Staphylococcus aureus; I46.2 Cardiac arrest due to underlying cardiac condition; I21.4 Non-ST elevation (NSTEMI) myocardial infarction; I12.0 Hypertensive chronic kidney disease with stage 5 chronic kidney disease or end stage renal disease; Z20.828 Contact with and (suspected) exposure to other viral communicable diseases; T82.7XXA Infection and inflammatory reaction due to other cardiac and vascular devices, implants and grafts, initial encounter; E11.22 Type 2 diabetes mellitus with diabetic chronic kidney disease; E03.9 Hypothyroidism, unspecified; E78.5 Hyperlipidemia, unspecified; E87.5 Hyperkalemia; D50.0 Iron deficiency anemia secondary to blood loss (chronic); G89.4 Chronic pain syndrome; J44.9 Chronic obstructive pulmonary disease, unspecified; Y83.2 Surgical operation with anastomosis, bypass or graft as the cause of abnormal reaction of the patient, or of later complication, without mention of misadventure at the time of the procedure; R00.1 Bradycardia, unspecified; I95.9 Hypotension, unspecified; Z90.49 Acquired absence of other specified parts of digestive tract; Z99.2 Dependence on renal dialysis; Z88.8 Allergy status to other drugs, medicaments and biological substances; Z79.899 Other long term (current) drug therapy; Z79.890 Hormone replacement therapy; Z79.82 Long term (current) use of aspirin; Z79.51 Long term (current) use of inhaled steroids; Z78.1 Physical restraint status
CPT/HCPCS: 12001; 33249; 36415; 36416; 36430; 51701; 71045; 76942; 80048; 80053; 80076; 80202; 81003; 81015; 82533; 82553; 82805; 83605; 83735; 84100; 84439; 84443; 84484; 85014; 85018; 85025; 85049; 85610; 85730; 86850; 86900; 86901; 87040; 87070; 87077; 87086; 87149; 87186; 87205; 87635; 90935; 92950; 93005; 93010; 93306; 94002; 94003; 96365; 96367; 99152; A4353; C1898; G0257; J0171; J0360; J0690; J0692; J1644; J1720; J2001; J2250; J2270; J2405; J2704; J2720; J3010; J3370; J3475; J3490; J7050; J7620; P9016; P9045; P9047; S0020; S0028; U0003